=== PATIENT | female | born 1940 | race Caucasian/White ===

== ENCOUNTER 2018-07-28 11:58 | Inpatient (IN) ==
[2018-07-28] MEDS ORDERED: Nicotine 21 MG PATCH.TD24 TD STA (20:01)
[2018-07-28] MEDS: Apixaban 5 MG TABLET PO SCH (20:26)
[2018-07-29 07:15] LABS: Basophils # 0.1 K/mcL (0.0-0.2); Basophils % 0.5 %; Eosinophils # 0.3 K/mcL (0.0-0.6); Eosinophils % 2.8 %; Hematocrit 34.4 % (35.3-44.9); Hemoglobin 10.6 g/dL (11.5-15.4); Immature Granulocytes % 0.3 % (0-4); Lymphocytes # 1.2 K/mcL (0.6-4.6); Lymphocytes % 11.1 %; Mean Corpuscular HGB Conc 30.8 g/dL (31.6-35.5); Mean Corpuscular Hemoglobin 25.9 pg (28.0-33.3); Mean Corpuscular Volume 84.1 fL (83.0-100.0); Mean Platelet Volume 9.2 fL (9.4-12.4); Monocytes % 9.7 %; Neutrophils # 7.8 K/mcL (1.6-8.9); Platelet Count 339 K/mcL (140-400); Red Blood Count 4.09 M/mcL (3.82-4.97); Red Cell Distribution Width 16.8 % (11.5-14.5); Segmented Neutrophils % 75.6 %
[2018-07-29 07:29] LABS: INR 1.3; Prothrombin Time 14.6 Seconds (9.4-12.1)
[2018-07-29 07:32] LABS: Activated Partial Thrombo Time 30.8 Seconds (26.0-36.0)
[2018-07-29 07:40] LABS: BUN/Creatinine Ratio 17 (6-26); Blood Urea Nitrogen 10 mg/dL (8-23); Calcium 8.3 mg/dL (8.6-10.3); Carbon Dioxide 29 mEq/L (23-29); Chloride 104 mEq/L (98-107); Glucose 91 mg/dL (70-105); Magnesium 1.5 mg/dL (1.6-2.6); Osmolality,Calculated 285 (280-300); Potassium 3.3 mEq/L (3.5-5.1); Sodium 138 mEq/L (136-145); eGFR For Non-African Americans > 60 (> 60)
[2018-07-29] MEDS: Apixaban 5 MG TABLET PO SCH ×2 (09:53→20:47)
[2018-07-29] MEDS: Nicotine 21 MG PATCH.TD24 TD SCH (09:54)
[2018-07-29] MEDS: Venlafaxine XR (24 HR) 75 MG CAP.ER.24H PO SCH (09:54)
[2018-07-29] MEDS: Diltiazem CD (24hr) 180 MG CAPSULE PO SCH (09:54)
[2018-07-29] MEDS: Furosemide 20 MG TABLET PO SCH (09:54)
--- NOTE | 2018-07-29 10:31 | Internal Med History&Physical ---
Date of Encounter: 07/29/18 Time of Encounter: 10:14 Assessment and Plan (1) CVA (cerebral vascular accident) Current visit: Yes Status: Acute PT, OT, ST to eval and treat. Will follow progress. Continue pure diet with thin liquids. Assist with ADLs as necessary. No new neurological deficits at this time. Continue eloquence and Lipitor. Has slight expressive aphasia. Qualifiers: CVA mechanism: embolism Precerebral and cerebral artery: middle cerebral artery Laterality of affected vessel: right Qualified Code(s): I63.411 - Cerebral infarction due to embolism of right middle cerebral artery (2) Afib Current visit: Yes Status: Acute Rate and rhythm stable. Continue eloquence and metoprolol. Monitor. Qualifiers: Atrial fibrillation type: chronic Qualified Code(s): I48.2 - Chronic atrial fibrillation (3) Hyperlipemia Current visit: Yes Status: Acute Continue Lipitor. Qualifiers: Hyperlipidemia type: unspecified Qualified Code(s): E78.5 - Hyperlipidemia, unspecified (4) Hypothyroidism Current visit: Yes Status: Acute Continue levothyroxine. Qualifiers: Hypothyroidism type: unspecified Qualified Code(s): E03.9 - Hypothyroidism, unspecified (5) Hypokalemia Current visit: Yes Status: Acute on lasix. k, 3.3. will start supplementation and monitor. Internal Medicine - H&P: HPI Admitted From: Hospital to Hospital Transfer Plans for Post Hospital Care: Home History of present illness: Ms. French is a 77 year old female admitted to rehab unit from [facility] s/p right CVA. went to ED at [facility] ED after having a fall that resulted in wrist pain. xray was normal and she returned home. started having confusion 2 days later and was taken to ER. has hx of afib and was not not anticoagulation therapy. MRI showed acute right MCA infarct . was started on puree diet with thin liquids. started on eliquis and lipitor. [place] with hearing aides, upper and lower dentures and glasses. Lives at home alone, independant prior to admission and drive. Past medical hx includes: a fib, depression, peripheral artery disease, hyperlipidemia, hypothyroidism. Patient is on eliquis. 1 episode of diarrhea this am. denies abd pain, fever, chills, nausea or v omitting. denies SOB or chest pain. Past Med Surg Social Fam HX - Past Medical History Medical history: atrial fibrillation, COPD, hyperlipidemia, hypertension Additional medical history: Hypothyroid Psychiatric history: depression - Past Surgical History Additional surgical history: Thyroid surgery - Social History Smoking Status: Current every day smoker Packs per day: 6 cigarettes Smokeless Tobacco Status: No Alcohol use: occasionally Drug use: none - Family History Mother History Unknown: Yes Living Status: Father History Unknown: Yes Living Status: Internal Medicine - H&P: Meds Cilostazol 50 mg PO BID 07/28/18 [History] Diltiazem HCl [Diltiazem 24Hr Cd] 180 mg PO DAILY 07/28/18 [History] Furosemide [Lasix] 20 mg PO DAILY 07/28/18 [History] Levothyroxine [Synthroid] 75 mcg PO 0630 07/28/18 [History] Lovastatin [Altoprev] 40 mg PO HS 07/28/18 [History] Venlafaxine HCl [Venlafaxine HCl ER] 75 mg PO DAILY 07/28/18 [History] Allergy/AdvReac Type Severity Reaction Status Date / Time No Known Allergies Allergy Verified 07/28/18 16:08 All Systems PM: A 10-system review of systems was performed and is negative for pertinent findin gs except as documented above in the HPI. - Constitutional Constitutional: no chills, no fever(s), no night sweats - EENT Eyes: no change in vision, no discharge, no pain, no photophobia Ears: no ear discharge, no ear pain, no tinnitus Nose, mouth and throat: no dysphagia, no nasal discharge, no neck pain, no sore throat - Cardiovascular Cardiovascular ROS IM: no chest pain, no diaphoresis, no dyspnea, no lightheadedness, no palpitations, no syncope - Respiratory Respiratory: no cough, no dyspnea, no wheezing, no excessive phlegm production - Gastrointestinal Gastrointestinal: no abdominal pain, no diarrhea, no hematemesis, no hematochezia, no melena, no nausea, no vomiting - Genitourinary Genitourinary: no change in urinary stream, no dysuria, no flank pain, no hematuria - Musculoskeletal Musculoskeletal ROS IM: no numbness, no tingling - Integumentary Integumentary IM: no rash, no unusual bruising - Neurological Neurological ROS: no confusion, no convulsions, no focal weakness, no numbness, no tingling, no tremor(s) - Hematologic/Lymphatic Hematologic/Lymphatic: no easy bruising - Constitutional Vitals: Temp Pulse Resp BP Pulse Ox 97.6 F 108 18 153/73 98 07/29/18 06:54 07/29/18 06:54 07/29/18 06:54 07/29/18 06:54 07/29/18 06:54 General appearance: Present: cooperative, A&O X 3, pleasant, no acute distress, answers questions appropriately Exam: expressive aphasia. - Head Head exam: Present: atraumatic, normocephalic - Eye Eye exam: Present: PERRL, conjuntiva pink, sclera anicteric Pupils: Present: PERRL - Neck Neck exam general surgery: Present: supple, trachea midline. Absent: lymphadenopathy - Respiratory Respiratory exam: Present: CTAB. Absent: accessory muscle use, rales, rhonchi, wheezes - Cardiovascular Cardiovascular exam: Present: irregular rhythm, +S1, +S2. Absent: diastolic m urmur, gallop, rubs, systolic murmur - GI/Abdominal GI/Abdominal exam: Present: normal bowel sounds, soft, no peritoneal signs. Absent: distended, tenderness - Extremities Exam Extremities exam: Present: warm, radial pulses palpable and symmetrical. Absent: calf tenderness, cyanotic, pedal edema Additional comments: slight L weakness. strength 4/5 - Neurological Exam Neurological exam: Present: CN II-XII intact, oriented X3, no focal deficits. Absent: pronater drift, facial droop, speech deficit - Skin Skin exam: Present: dry, intact Additional comments: Reddish bruising around left eye Steri-Strips to left forehead. Internal Med - H&P Results - Labs CBC & Chem 7: 07/29/18 07:01 07/29/18 07:01 Labs: Short CBC 07/29/18 Range/Units 07:01 WBC 10.3 (4.3-11.1) K/mcL Hgb 10.6 L (11.5-15.4) g/dL Hct 34.4 L (35.3-44.9) % Plt Count 339 (140-400) K/mcL Neutrophils # 7.8 (1.6-8.9) K/mcL BMP 07/29/18 07:01 Sodium 138 Potassium 3.3 L Chloride 104 Carbon Dioxide 29 BUN 10 Creatinine 0.58 L Glucose 91 Calcium 8.3 L
[2018-07-30 07:35] LABS: BUN/Creatinine Ratio 23 (6-26); Blood Urea Nitrogen 15 mg/dL (8-23); Calcium 8.6 mg/dL (8.6-10.3); Carbon Dioxide 31 mEq/L (23-29); Chloride 105 mEq/L (98-107); Glucose 97 mg/dL (70-105); Osmolality,Calculated 293 (280-300); Potassium 4.2 mEq/L (3.5-5.1); Sodium 141 mEq/L (136-145); eGFR For Non-African Americans > 60 (> 60)
[2018-07-30] MEDS: Diltiazem CD (24hr) 180 MG CAPSULE PO SCH (09:24)
[2018-07-30] MEDS: Furosemide 20 MG TABLET PO SCH (09:24)
[2018-07-30] MEDS: Apixaban 5 MG TABLET PO SCH ×2 (09:25→20:28)
[2018-07-30] MEDS: Venlafaxine XR (24 HR) 75 MG CAP.ER.24H PO SCH (09:25)
[2018-07-30] MEDS: Nicotine 21 MG PATCH.TD24 TD SCH (09:27)
--- NOTE | 2018-07-30 13:04 | Internal Med Progress Note ---
Date of Encounter: 07/30/18 Time of Encounter: 13:05 - Subjective Interval history: Assessment and Plan (1) CVA (cerebral vascular accident) Current visit: Yes Status: Acute PT, OT, ST to eval and treat. had cva when off anticoag. Will follow progress. Continue pure diet with thin liquids. will advance to chop diet as tolerated. Speech eval pend. Continue to Assist with ADLs as necessary. Has l sided weakness. asphasic speech shows some improvement. Small soft fading bruising to mid face and forehead. No new neurological deficits at this time. Continue eliquis and Lipitor. . Qualifiers: CVA mechanism: embolism Precerebral and cerebral artery: middle cerebral artery Laterality of affected vessel: right Qualified Code(s): I63.411 - Cerebral infarction due to embolism of right middle cerebral artery (2) Afib Current visit: Yes Status: Acute Rate and rhythm stable. Continue eliquis and metoprolol. Qualifiers: Atrial fibrillation type: chronic Qualified Code(s): I48.2 - Chronic atrial fibrillation (3) Hyperlipemia Current visit: Yes Status: Acute Continue Lipitor. Qualifiers: Hyperlipidemia type: unspecified Qualified Code(s): E78.5 - Hyperlipidemia, unspecified (4) Hypothyroidism Current visit: Yes Status: Acute Continue levothyroxine. Qualifiers: Hypothyroidism type: unspecified Qualified Code(s): E03.9 - Hypothyroidism, unspecified (5) Hypokalemia and hypomagnasemia Current visit: Yes Status: Acute on lasix. k low will give one time dose oral k and then start daily lower supplementation and monitor. IV mag one gram, then start once day po INTERVAL HISTORY Ms. French is a 77 year old female admitted 07/29 to rehab unit from [facility] s/p right CVA. She lives alone and fell at home, hit her head and wrist. 2 days later very confused and was found to have right sided CVA with left sided weakness and speech change. MRI showed acute right MCA infarct . She as hx of afib and was not not anticoagulation therapy. She had weakness and speech difficulty as well as swallow problems. She was started on puree diet with thin liquids. started on eliquis and lipitor. [place] with hearing aides, upper and lower dentures and glasses. Lives at home alone, independant prior to admission. She has hx anxiety and hypothyroid and htn , and says her mood currently ok on medicine. BP stable HR stable no cp denies vision changes She is a daily half pack smoker. agrees to use patch. advised to stop smoking. She was recently started on eliquis and doing well with it. She is on lasix her K has been low 3.2 renal function good. She wants to advance her diet. Her mag has been low. She is here for rehab. time spent 20 min - EXAM General appearance: Present: WF cooperative, A&O [place] pleasant, no acute distress Exam: mild mod expressive aphasia. - Head Head exam: Present: forehead and midface shows fading bruises and small laceration no drng soft no active bleeding - Eye Eye exam: : PERRL, conjuntiva pink, sclera anicteric Pupils: Present: PERRL - Neck Neck exam general surgery: Present: supple, trachea midline. Absent: lymphadenopathy - Respiratory Respiratory exam: Present: CTAB. Absent: accessory muscle use, rales, rhonchi, wheezes - Cardiovascular Cardiovascular exam: Present: irregular rhythm, +S1, +S2. Absent: diastolic murmur, gallop, rubs, systolic murmur - GI/Abdominal GI/Abdominal exam: Present: normal bowel sounds, soft, no peritoneal signs. Absent: distended, tenderness - Extremities Exam Extremities exam: Present: warm, radial pulses palpable and symmetrical. Absent: calf tenderness, cyanotic, pedal edema Additional comments: slight L weakness. strength 4/5 - Neurological Exam Neurological exam: Present: CN II-XII intact, oriented X3, no focal deficits. Absent: pronater drift, facial droop, speech deficit - Skin Skin exam: Present: dry, intact Additional comments: fading bruising around left eye Steri-Strips to left forehead intact no bleeding - Constitutional Vitals: Temp Pulse Resp BP Pulse Ox 98.4 F 118 16 165/77 95 07/30/18 08:00 07/30/18 08:00 07/30/18 08:00 07/30/18 08:00 07/30/18 08:00 Internal Medicine: Result - Labs CBC & Chem 7: 07/29/18 07:01 07/30/18 06:00 Labs: BMP 07/30/18 06:00 Sodium 141 Potassium 4.2 D Chloride 105 Carbon Dioxide 31 H BUN 15 Creatinine 0.66 Glucose 97 Calcium 8.6 - ABG Interpretation ABG results: PT/INR, D-dimer PT 14.6 Seconds (9.4-12.1) H 07/29/18 07:01 Consult Discharge Plan - Plan Referrals: Farrah Lieberman MD [Primary Care Provider] -
[2018-07-30] MEDS: Multivit/Ca/Min/Fe/FA 1 TAB TABLET PO SCH (15:04)
[2018-07-30] MEDS: Magnesium Oxide 400 MG TABLET PO SCH (15:04)
[2018-07-31 05:52] LABS: BUN/Creatinine Ratio 24 (6-26); Blood Urea Nitrogen 15 mg/dL (8-23); Calcium 8.6 mg/dL (8.6-10.3); Carbon Dioxide 29 mEq/L (23-29); Chloride 102 mEq/L (98-107); Glucose 104 mg/dL (70-105); Osmolality,Calculated 291 (280-300); Potassium 3.9 mEq/L (3.5-5.1); Sodium 140 mEq/L (136-145); eGFR For Non-African Americans > 60 (> 60)
[2018-07-31] MEDS: Furosemide 20 MG TABLET PO SCH (08:56)
[2018-07-31] MEDS: Diltiazem CD (24hr) 180 MG CAPSULE PO SCH (08:57)
[2018-07-31] MEDS: Apixaban 5 MG TABLET PO SCH ×2 (08:57→20:29)
[2018-07-31] MEDS: Multivit/Ca/Min/Fe/FA 1 TAB TABLET PO SCH (08:57)
[2018-07-31] MEDS: Magnesium Oxide 400 MG TABLET PO SCH (08:58)
[2018-07-31] MEDS: Venlafaxine XR (24 HR) 75 MG CAP.ER.24H PO SCH (08:58)
[2018-07-31] MEDS: Nicotine 21 MG PATCH.TD24 TD SCH (09:00)
--- NOTE | 2018-07-31 14:24 | Internal Med Progress Note ---
Date of Encounter: 07/31/18 Time of Encounter: 02:30 - Subjective Interval history: Assessment and Plan (1) CVA (cerebral vascular accident) Current visit: Yes Status: Acute PT, OT, ST to eval and treat. had cva when off anticoag. Will follow progress. Continue pure diet with thin liquids. will advance to chop diet as tolerated. Speech eval pend. Continue to Assist with ADLs as necessary. Has l sided weakness. asphasic speech shows some improvement. Small soft fading bruising to mid face and forehead. No new neurological deficits at this time. Continue eliquis and Lipitor. . Qualifiers: CVA mechanism: embolism Precerebral and cerebral artery: middle cerebral artery Laterality of affected vessel: right Qualified Code(s): I63.411 - Cerebral infarction due to embolism of right middle cerebral artery (2) Afib Current visit: Yes Status: Acute Rate and rhythm stable. Continue eliquis and metoprolol. Qualifiers: Atrial fibrillation type: chronic Qualified Code(s): I48.2 - Chronic atrial fibrillation (3) Hyperlipemia Current visit: Yes Status: Acute Continue Lipitor. Qualifiers: Hyperlipidemia type: unspecified Qualified Code(s): E78.5 - Hyperlipidemia, unspecified (4) Hypothyroidism Current visit: Yes Status: Acute Continue levothyroxine. Qualifiers: Hypothyroidism type: unspecified Qualified Code(s): E03.9 - Hypothyroidism, unspecified (5) Hypokalemia and hypomagnasemia Current visit: Yes Status: Acute on lasix. k low will give one time dose oral k and then start daily lower supplementation and monitor. IV mag one gram, then start once day po INTERVAL HISTORY Ms. Frnech is a 77 year old female admitted 07/29 to rehab unit from [facility] s/p right CVA. She lives alone and fell at home, hit her head and wrist. 2 days later very confused and was found to have right sided CVA with left sided weakness and speech change. MRI showed acute right MCA infarct . She as hx of afib and was not not anticoagulation therapy. She had weakness and speech difficulty as well as swallow problems. She was started on puree diet with thin liquids. started on eliquis and lipitor. advanced to chopped [place] with hearing aides, upper and lower dentures and glasses. Lives at home alone, independant prior to admission. She has hx anxiety and hypothyroid and htn , and says her mood currently ok on medicine. BP stable HR stable denies vision changes She is a daily half pack smoker. agrees to use patch. advised to stop smoking. She was recently started on eliquis and doing well with it. She is on lasix her K has been low and has been replaced renal function good. will continue to monitor K She wants to advance her diet. Her mag has been low. did start PO mag will recheck level She is here for rehab. She was anxious this morning and had transient cp had negative troponin and currently denies cp time spent 20 min - EXAM General appearance: Present: WF cooperative, A&O [place] pleasant, no acute distress Exam: mild mod expressive aphasia. - Head Head exam: Present: forehead and midface shows fading bruises and small laceration no drng soft no active bleeding - Eye Eye exam: : PERRL, conjuntiva pink, sclera anicteric Pupils: Present: PERRL - Neck Neck exam general surgery: Present: supple, trachea midline. Absent: lymphadenopathy - Respiratory Respiratory exam: Present: CTAB. Absent: accessory muscle use, rales, rhonchi, wheezes - Cardiovascular Cardiovascular exam: Present: irregular rhythm, +S1, +S2. Absent: diastolic murmur, gallop, rubs, systolic murmur - GI/Abdominal GI/Abdominal exam: Present: normal bowel sounds, soft, no peritoneal signs. Absent: distended, tenderness - Extremities Exam Extremities exam: Present: warm, radial pulses palpable and symmetrical. Absent: calf tenderness, cyanotic, pedal edema Additional comments: slight L weakness. strength 4/5 - Neurological Exam Neurological exam: Present: CN II-XII intact, oriented X3, no focal deficits. Absent: pronater drift, facial droop, speech deficit - Skin Skin exam: Present: dry, intact Additional comments: fading bruising around left eye Steri-Strips to left forehead intact no bleeding - Constitutional Vitals: Temp Pulse Resp BP Pulse Ox 98.0 F 106 16 141/85 93 07/31/18 08:57 07/31/18 08:57 07/31/18 08:57 07/31/18 08:57 07/31/18 08:57 General appearance: Present: cooperative, A&O X 3, pleasant, no acute distress, answers questions appropriately Internal Medicine: Result - Labs CBC & Chem 7: 07/29/18 07:01 07/31/18 05:35 Labs: BMP 07/31/18 05:35 Sodium 140 Potassium 3.9 Chloride 102 Carbon Dioxide 29 BUN 15 Creatinine 0.63 Glucose 104 Calcium 8.6 Cardiac Enzymes 07/31/18 Range/Units 09:30 Troponin I 0.03 (< 0.04) ng/mL - ABG Interpretation ABG results: PT/INR, D-dimer PT 14.6 Seconds (9.4-12.1) H 07/29/18 07:01 Consult Discharge Plan - Plan Referrals: Farrah Lieberman MD [Primary Care Provider] -
[2018-08-01 07:42] LABS: Basophils % 0.3 %; Eosinophils # 0.1 K/mcL (0.0-0.6); Eosinophils % 0.7 %; Hematocrit 34.4 % (35.3-44.9); Hemoglobin 10.8 g/dL (11.5-15.4); Immature Granulocytes % 0.7 % (0-4); Lymphocytes # 1.3 K/mcL (0.6-4.6); Lymphocytes % 8.8 %; Mean Corpuscular HGB Conc 31.4 g/dL (31.6-35.5); Mean Corpuscular Volume 82.7 fL (83.0-100.0); Mean Platelet Volume 9.4 fL (9.4-12.4); Monocytes # 1.5 K/mcL (0.0-1.3); Monocytes % 10.2 %; Neutrophils # 11.8 K/mcL (1.6-8.9); Nucleated Red Blood Cells 0.2 /100 WBC (0); Platelet Count 370 K/mcL (140-400); Red Blood Count 4.16 M/mcL (3.82-4.97); Segmented Neutrophils % 79.3 %
[2018-08-01 08:26] LABS: BUN/Creatinine Ratio 24 (6-26); Blood Urea Nitrogen 14 mg/dL (8-23); Calcium 8.6 mg/dL (8.6-10.3); Carbon Dioxide 29 mEq/L (23-29); Chloride 99 mEq/L (98-107); Glucose 99 mg/dL (70-105); Osmolality,Calculated 287 (280-300); Potassium 3.4 mEq/L (3.5-5.1); Sodium 138 mEq/L (136-145); eGFR For Non-African Americans > 60 (> 60)
[2018-08-01] MEDS: Venlafaxine XR (24 HR) 75 MG CAP.ER.24H PO SCH (09:21)
[2018-08-01] MEDS: Diltiazem CD (24hr) 180 MG CAPSULE PO SCH (09:21)
[2018-08-01] MEDS: Apixaban 5 MG TABLET PO SCH ×2 (09:21→19:24)
[2018-08-01] MEDS: Furosemide 20 MG TABLET PO SCH (09:21)
[2018-08-01] MEDS: Magnesium Oxide 400 MG TABLET PO SCH (09:21)
[2018-08-01] MEDS: Multivit/Ca/Min/Fe/FA 1 TAB TABLET PO SCH (09:21)
[2018-08-01] MEDS: Nicotine 21 MG PATCH.TD24 TD SCH (09:22)
--- NOTE | 2018-08-01 16:27 | Internal Med Progress Note ---
Date of Encounter: 08/01/18 Time of Encounter: 12:30 - Subjective Interval history: Assessment and Plan (1) CVA (cerebral vascular accident) Current visit: Yes Status: Acute PT, OT, ST to eval and treat. had cva when off anticoagulant at home. No on anticoag. Will follow progress. was on pure diet with thin liquids. did advance to chop diet as tolerated. pt showing some difficulty with adl working with therapy attention span is short Continue to Assist with ADLs as necessary. Has l sided weakness. asphasic speech shows some improvement. Small soft fading bruising to mid face and forehead. No new neurological deficits at this time. Continue eliquis and Lipitor. . Qualifiers: CVA mechanism: embolism Precerebral and cerebral artery: middle cerebral artery Laterality of affected vessel: right Qualified Code(s): I63.411 - Cerebral infarction due to embolism of right middle cerebral artery (2) Afib Current visit: Yes Status: Acute Rate and rhythm stable. Continue eliquis and metoprolol. Qualifiers: Atrial fibrillation type: chronic Qualified Code(s): I48.2 - Chronic atrial fibrillation (3) Hyperlipemia Current visit: Yes Status: Acute Continue Lipitor. Qualifiers: Hyperlipidemia type: unspecified Qualified Code(s): E78.5 - Hyperlipidemia, unspecified (4) Hypothyroidism Current visit: Yes Status: Acute Continue levothyroxine. Qualifiers: Hypothyroidism type: unspecified Qualified Code(s): E03.9 - Hypothyroidism, unspecified (5) Hypokalemia and hypomagnasemia Current visit: Yes Status: Acute on lasix. k low will give one time dose oral k and then start daily lower supplementation and monitor. IV mag one gram, then start once day po will check urinalysis INTERVAL HISTORY Ms. French is a 77 year old female admitted 07/29 to rehab unit from [facility] s/p right CVA. She lives alone and fell at home, hit her head and wrist. 2 days later very confused and was found to have right sided CVA with left sided weakness and speech change. MRI showed acute right MCA infarct . She as hx of afib and was not not anticoagulation therapy. She had weakness and speech difficulty as well as swallow problems. She was started on puree diet with thin liquids. started on eliquis and lipitor. advanced to chopped [place] with hearing aides, upper and lower dentures and glasses. Lives at home alone, independant prior to admission. She has hx anxiety and hypothyroid and htn , and says her mood currently ok on medicine. BP stable HR stable denies vision changes She is a daily half pack smoker. agrees to use patch. advised to stop smoking. She was recently started on eliquis and doing well with it. She is on lasix her K has been low and has been replaced renal function good. will continue to monitor K She wants to advance her diet. Her mag has been low. did start PO mag will recheck level She is here for rehab. working with therapy attention span is short and she is forgetful she has dentures and she is having some trouble with them she is eating fair she reports that she had a loose stool today and feels some urinary frequency currently denies cp time spent 20 min - EXAM General appearance: Present: WF cooperative, A&O [place] pleasant, no acute distress Exam: mild mod expressive aphasia. - Head Head exam: Present: forehead and midface shows fading bruises and small laceration no drng soft no active bleeding - Eye Eye exam: : PERRL, conjuntiva pink, sclera anicteric Pupils: Present: PERRL - Neck Neck exam general surgery: Present: supple, trachea midline. Absent: lymphadenopathy - Respiratory Respiratory exam: Present: CTAB. Absent: accessory muscle use, rales, rhonchi, wheezes - Cardiovascular Cardiovascular exam: Present: irregular rhythm, +S1, +S2. Absent: diastolic murmur, gallop, rubs, systolic murmur - GI/Abdominal GI/Abdominal exam: Present: normal bowel sounds, soft, no peritoneal signs. Absent: distended, tenderness - Extremities Exam Extremities exam: Present: warm, radial pulses palpable and symmetrical. Absent: calf tenderness, cyanotic, pedal edema Additional comments: slight L weakness. strength 4/5 - Neurological Exam Neurological exam: Present: CN II-XII intact, oriented X3, no focal deficits. Absent: pronater drift, facial droop, speech deficit - Skin Skin exam: Present: dry, intact Additional comments: fading bruising around left eye Steri-Strips to left forehead intact no bleeding - Constitutional Vitals: Temp Pulse Resp BP Pulse Ox 98.2 F 116 15 170/90 90 08/01/18 08:02 08/01/18 08:02 08/01/18 08:02 08/01/18 08:02 08/01/18 08:02 Internal Medicine: Result - Labs CBC & Chem 7: 08/01/18 06:44 08/01/18 06:44 Labs: Short CBC 08/01/18 Range/Units 06:44 WBC 14.9 H (4.3-11.1) K/mcL Hgb 10.8 L (11.5-15.4) g/dL Hct 34.4 L (35.3-44.9) % Plt Count 370 (140-400) K/mcL Neutrophils # 11.8 H (1.6-8.9) K/mcL BMP 08/01/18 06:44 Sodium 138 Potassium 3.4 L Chloride 99 Carbon Dioxide 29 BUN 14 Creatinine 0.59 L Glucose 99 Calcium 8.6 - ABG Interpretation ABG results: PT/INR, D-dimer PT 14.6 Seconds (9.4-12.1) H 07/29/18 07:01 Consult Discharge Plan - Plan Referrals: Farrah Lieberman MD [Primary Care Provider] -
[2018-08-01 22:37] LABS: Bilirubin,Urine Negative (Negative); Blood,Urine Trace-intact (Negative); Clarity,Urine Slightly Cloudy (Clear); Glucose,Urine (UA) Normal (Normal); Ketones,Urine Trace mg/dL (Negative); Leukocyte Esterase,Urine Negative (Negative); Nitrite,Urine Negative (Negative); PH,Urine 5.5 pH Units (5.0-8.0); Protein,Urine 30 mg/dL (Neg-Trace); Urobilinogen,Urine Normal (Normal)
[2018-08-01 22:39] LABS: Color,Urine Dark Yellow (Yellow)
[2018-08-01 22:40] LABS: Amorphous Sediment,Urine Few (Few); RBC,Urine 0-3 per hpf (0-3); Squamous Epithelial Cell,Urine Few per lpf (None-Few)
[2018-08-02 06:04] LABS: BUN/Creatinine Ratio 32 (6-26); Blood Urea Nitrogen 20 mg/dL (8-23); Calcium 8.6 mg/dL (8.6-10.3); Carbon Dioxide 29 mEq/L (23-29); Chloride 104 mEq/L (98-107); Glucose 106 mg/dL (70-105); Osmolality,Calculated 289 (280-300); Potassium 4.2 mEq/L (3.5-5.1); Sodium 138 mEq/L (136-145); eGFR For Non-African Americans > 60 (> 60)
[2018-08-02] MEDS: Venlafaxine XR (24 HR) 75 MG CAP.ER.24H PO SCH (09:04)
[2018-08-02] MEDS: Multivit/Ca/Min/Fe/FA 1 TAB TABLET PO SCH (09:04)
[2018-08-02] MEDS: Apixaban 5 MG TABLET PO SCH ×2 (09:05→19:34)
[2018-08-02] MEDS: Nicotine 21 MG PATCH.TD24 TD SCH (09:05)
[2018-08-02] MEDS: Diltiazem CD (24hr) 180 MG CAPSULE PO SCH (09:05)
[2018-08-02] MEDS: Magnesium Oxide 400 MG TABLET PO SCH (09:05)
[2018-08-02] MEDS: Furosemide 20 MG TABLET PO SCH (09:05)
--- NOTE | 2018-08-02 10:34 | Internal Med Progress Note ---
Date of Encounter: 08/02/18 Time of Encounter: 10:32 - Assessment and plan (1) CVA (cerebral vascular accident) Current Visit: Yes Status: Acute Assessment and plan: Continue PT and OT. Will follow progress. Ambulating hundred and 50 feet with standby assist. Does have expressive and receptive aphasia. Follows 2 steps simple commands. Qualifiers: CVA mechanism: embolism Precerebral and cerebral artery: middle cerebral artery Laterality of affected vessel: right Qualified Code(s): I63.411 - Cerebral infarction due to embolism of right middle cerebral artery (2) Afib Current Visit: Yes Status: Acute Assessment and plan: Rate and rhythm stable. Continue current medication. Qualifiers: Atrial fibrillation type: chronic Qualified Code(s): I48.2 - Chronic atrial fibrillation (3) Hyperlipemia Current Visit: Yes Status: Acute Assessment and plan: Continue statin Qualifiers: Hyperlipidemia type: unspecified Qualified Code(s): E78.5 - Hyperlipidemia, unspecified (4) Hypothyroidism Current Visit: Yes Status: Acute Assessment and plan: Continue levothyroxine. Qualifiers: Hypothyroidism type: unspecified Qualified Code(s): E03.9 - Hypothyroidism, unspecified (5) Hypokalemia Current Visit: Yes Status: Acute Assessment and plan: Improved. Potassium 4.2. Monitor labs. Continue potassium PO. - Time Spent With Patient less than 15 minutes - Constitutional Vitals: Temp Pulse Resp BP Pulse Ox 98.5 F 115 16 139/79 93 08/02/18 07:34 08/02/18 07:34 08/02/18 07:34 08/02/18 07:34 08/02/18 07:34 General appearance: Present: cooperative, A&O X 3, pleasant, no acute distress, answers questions appropriately - Head Head exam: Present: atraumatic, normocephalic - Eye Eye exam: Present: PERRL, conjuntiva pink, sclera anicteric Pupils: Present: PERRL - Neck Neck exam general surgery: Present: supple, trachea midline. Absent: lymphadenopathy - Respiratory Respiratory exam: Present: CTAB. Absent: accessory muscle use, rales, rhonchi, wheezes - Cardiovascular Cardiovascular exam: Present: RRR, +S1, +S2. Absent: diastolic murmur, gallop, rubs, systolic murmur - GI/Abdominal GI/Abdominal exam: Present: normal bowel sounds, soft, no peritoneal signs. Absent: distended, tenderness - Extremities Exam Extremities exam: Present: warm, radial pulses palpable and symmetrical. Absent: calf tenderness, cyanotic, pedal edema - Neurological Exam Neurological exam: Present: CN II-XII intact, oriented X3, no focal deficits. Absent: pronater drift, facial droop, speech deficit - Skin Skin exam: Present: dry, intact Additional comments: Steri-Strips strips of left eye with bruising around left eye Internal Medicine: Result - Labs CBC & Chem 7: 08/01/18 06:44 08/02/18 05:35 Labs: BMP 08/02/18 05:35 Sodium 138 Potassium 4.2 Chloride 104 Carbon Dioxide 29 BUN 20 Creatinine 0.62 Glucose 106 H Calcium 8.6 Urine 08/01/18 Range/Units 22:20 Urine Color Dark Yellow (Yellow) Urine Clarity Slightly Cloudy A (Clear) Urine pH 5.5 (5.0-8.0) pH Units Ur Specific [place] 1.020 (1.010-1.025) Urine Protein 30 H (Neg-Trace) mg/dL Urine Glucose (UA) Normal (Normal) mg/dL - ABG Interpretation ABG results: PT/INR, D-dimer PT 14.6 Seconds (9.4-12.1) H 07/29/18 07:01 Consult Discharge Plan - Plan Referrals: Farrah Lieberman MD [Primary Care Provider] -
--- NOTE | 2018-08-02 14:55 | Electrocardiograph Report ---
[address] [address] Test Date: 2018-07-31 Pat Name: Fabby French Department: 2001 Room: 109 Gender: F [employer]: : 1940 Requested By: Radha Titus Order Number: [id number] Reading MD: Mohini Villafana Measurements Intervals [place] Rate: 113 P: CA: 0 QRS: 13 QRSD: 80 T: -40 QT: 318 QTc: 385 Interpretive Statements ATRIAL FIBRILLATION WITH RAPID VENTRICULAR RESPONSE Electronically Signed On 08-02-2018 14:54:44 EDT by Mohini Villafana
[2018-08-03 05:51] LABS: Basophils # 0.1 K/mcL (0.0-0.2); Basophils % 0.6 %; Eosinophils # 0.4 K/mcL (0.0-0.6); Eosinophils % 3.7 %; Hematocrit 32.1 % (35.3-44.9); Hemoglobin 10.1 g/dL (11.5-15.4); Immature Granulocytes % 0.8 % (0-4); Lymphocytes # 1.7 K/mcL (0.6-4.6); Lymphocytes % 15.1 %; Mean Corpuscular HGB Conc 31.5 g/dL (31.6-35.5); Mean Corpuscular Hemoglobin 26.4 pg (28.0-33.3); Mean Platelet Volume 9.3 fL (9.4-12.4); Monocytes % 8.6 %; Neutrophils # 8.1 K/mcL (1.6-8.9); Nucleated Red Blood Cells 0.2 /100 WBC (0); Platelet Count 379 K/mcL (140-400); Red Blood Count 3.82 M/mcL (3.82-4.97); Red Cell Distribution Width 17.3 % (11.5-14.5); Segmented Neutrophils % 71.2 %
[2018-08-03 06:06] LABS: BUN/Creatinine Ratio 27 (6-26); Blood Urea Nitrogen 17 mg/dL (8-23); Calcium 8.7 mg/dL (8.6-10.3); Carbon Dioxide 28 mEq/L (23-29); Chloride 105 mEq/L (98-107); Glucose 98 mg/dL (70-105); Osmolality,Calculated 290 (280-300); Potassium 4.4 mEq/L (3.5-5.1); Sodium 139 mEq/L (136-145); eGFR For Non-African Americans > 60 (> 60)
[2018-08-03] MEDS: Multivit/Ca/Min/Fe/FA 1 TAB TABLET PO SCH (09:12)
[2018-08-03] MEDS: Magnesium Oxide 400 MG TABLET PO SCH (09:12)
[2018-08-03] MEDS: Diltiazem CD (24hr) 180 MG CAPSULE PO SCH (09:13)
[2018-08-03] MEDS: Venlafaxine XR (24 HR) 75 MG CAP.ER.24H PO SCH (09:13)
[2018-08-03] MEDS: Apixaban 5 MG TABLET PO SCH ×2 (09:13→20:20)
[2018-08-03] MEDS: Furosemide 20 MG TABLET PO SCH (09:13)
[2018-08-03] MEDS: Nicotine 21 MG PATCH.TD24 TD SCH (09:14)
--- NOTE | 2018-08-03 13:57 | Internal Med Progress Note ---
Date of Encounter: 08/03/18 Time of Encounter: 13:55 - Assessment and plan (1) CVA (cerebral vascular accident) Current Visit: Yes Status: Acute Assessment and plan: No acute issues. Patient continues to have some issues with expressive aphasia and her dysphagia. Patient will continue work with speech therapy and will continue to reinforce proper swallow techniques. Patient noted to continue to have some issues with word searching during complex sentences, but was appropriate with answering complex questions and following complex directions. No motor deficit noted on exam. We will continue with physical therapy which she is progressing well with Qualifiers: CVA mechanism: embolism Precerebral and cerebral artery: middle cerebral artery Laterality of affected vessel: right Qualified Code(s): I63.411 - Ce rebral infarction due to embolism of right middle cerebral artery (2) HTN (hypertension) Current Visit: Yes Status: Acute Assessment and plan: Vital signs stable. We will continue with current medications. Qualifiers: Hypertension type: essential hypertension Qualified Code(s): I10 - Essential (primary) hypertension (3) Afib Current Visit: Yes Status: Acute Assessment and plan: No acute issues. Patient's heart rate has remained controlled less than 100. Patient denies any chest discomfort or palpitations. We will continue with current medications Qualifiers: Atrial fibrillation type: chronic Qualified Code(s): I48.2 - Chronic atrial fibrillation - Time Spent With Patient less than 15 minutes - Subjective Interval history: Patient appears relaxed and currently denies any discomforts or shortness of breath. Patient states that her physical therapy is progressing well. Patient noted to have some issues with word searching during conversation, but was able to answer complex questions appropriately Patient reports that patient has been having difficulty with swallow, pocketing her food when eating. Patient instructed to remove dentures and rinse out her dentures afterwards - Constitutional Vitals: Temp Pulse Resp BP Pulse Ox 98.1 F 127 16 147/87 95 08/03/18 08:44 08/03/18 08:44 08/03/18 08:44 08/03/18 08:44 08/03/18 08:44 General appearance: Present: cooperative, A&O X 3, pleasant, no acute distress, answers questions appropriately - Head Head exam: Present: atraumatic, normocephalic - Eye Eye exam: Present: PERRL, conjuntiva pink, sclera anicteric Pupils: Present: PERRL - Neck Neck exam general surgery: Present: supple, trachea midline. Absent: lymphadeno sanaz - Respiratory Respiratory exam: Present: decreased breath sounds, CTAB. Absent: accessory muscle use, rales, rhonchi, wheezes - Cardiovascular Cardiovascular exam: Present: RRR, +S1, +S2. Absent: diastolic murmur, gallop, rubs, systolic murmur - GI/Abdominal GI/Abdominal exam: Present: normal bowel sounds, soft, no peritoneal signs. Absent: distended, tenderness - Extremities Exam Extremities exam: Present: warm, radial pulses palpable and symmetrical. Absent: calf tenderness, cyanotic, pedal edema - Neurological Exam Neurological exam: Present: CN II-XII intact, oriented X3, facial droop, speech deficit. Absent: pronater drift Additional comments: Patient noted to continue to have slight left facial droop. She also continues to have a slight expressive aphasia with word searching during complexed sentences. No focal motor deficits noted on exam - Skin Skin exam: Present: dry, intact Internal Medicine: Result - Labs CBC & Chem 7: 08/03/18 05:15 08/03/18 05:15 Labs: Short CBC 08/03/18 Range/Units 05:15 WBC 11.4 H (4.3-11.1) K/mcL Hgb 10.1 L (11.5-15.4) g/dL Hct 32.1 L (35.3-44.9) % Plt Count 379 (140-400) K/mcL Neutrophils # 8.1 (1.6-8.9) K/mcL BMP 08/03/18 05:15 Sodium 139 Potassium 4.4 Chloride 105 Carbon Dioxide 28 BUN 17 Creatinine 0.64 Glucose 98 Calcium 8.7 - ABG Interpretation ABG results: PT/INR, D-dimer PT 14.6 Seconds (9.4-12.1) H 07/29/18 07:01 Consult Discharge Plan - Plan Referrals: Farrah Lieberman MD [Primary Care Provider] -
--- NOTE | 2018-08-03 14:54 | Psychological Evaluation ---
Date of Encounter: 08/03/18 Time of Encounter: 10:30 History of Present Illness History of present illness: Ms. French is a 77 year old female was admitted to rehab unit from [facility] s/p right CVA. She went to ED at [facility] ED after having a fall that resulted in wrist pain. xray was normal and she returned home. She started having confusion 2 days later and was taken to ER. She has hx of afib and was not not anticoagulation therapy. MRI showed acute right MCA infarct Past Medical History - Psychiatric History Psychiatric history: Reports: no psych history Home Medications and Allergies Cilostazol 50 mg PO BID 07/28/18 [History] Diltiazem HCl [Diltiazem 24Hr Cd] 180 mg PO DAILY 07/28/18 [History] Furosemide [Lasix] 20 mg PO DAILY 07/28/18 [History] Levothyroxine [Synthroid] 75 mcg PO 0630 07/28/18 [History] Lovastatin [Altoprev] 40 mg PO HS 07/28/18 [History] Venlafaxine HCl [Venlafaxine HCl ER] 75 mg PO DAILY 07/28/18 [History] Allergy/AdvReac Type Severity Reaction Status Date / Time No Known Allergies Allergy Verified 07/28/18 16:08 Social History - Social History Social History: Pt lives alone and is . Son years ago. She has 3 brothers that are supportive. She is high school graduate and worked 37 years for [employer] retiring in 2000. She was totally independent prior to CVA. - Tobacco Use Smoking Status: Current every day smoker - Alcohol Use Alcohol Use: occasionally - Drug Use Drug Use: none Cognitive/Emotional Assessment - Cognitive Ability Abstract Thinking Ability: No Deficits Noted Attention Span Ability: Capable of Focused Attention, Capable of Sustained Attention Verbal Communication Ability: Conversational Style Problem Solving Ability: Able To Solve Simple Problems Level of Alertness: Alert Memory Description: Recent Intact, Immediate Intact, Mcc Intact Orientation: Person, Place, Time Ability to Follow Directions: Good Speech Pattern: Normal rate Thought Process: Logical Additional Findings: Pt had difficulty hearing and needed instructions repeated due to bilateral aids. She could not spell WORLD backwards. Able to recall 3/3 words after 5 min. Knew current events. Stated changes in reading abilities since CVA and upset because enjoyed reading before. Also concerned with pocketing food and team noted possible left neglect. - Emotional Status Mood Description: Anxious Affect Description: Euthymic/stable Coping Ability: Verbalizes positive coping skills Additional Findings: Sleeping difficult because anxious with changes since CVA and concerned with how she will cope upon release from rehab. Worries about driving and paying bills. Rec tx will assist with relaxation strategies. Assessment & Plan - Prognosis Prognosis: Good - Treatment Plan Treatment Plan/Recommendations: Discussed relaxation strategies and development of compensatory strategies for returning to maintaining home - driving, bill paying. Will follow while inpt Treatment Frequency: weekly Next Session Date: 08/10/18 Procedures - Participants Therapy Participant: Patient - Session Time Session Start Time: 10:30 Session Stop Time: 11:00
[2018-08-03] MEDS: Melatonin 3 MG TABLET PO PRN (20:20)
[2018-08-04 06:05] LABS: BUN/Creatinine Ratio 22 (6-26); Blood Urea Nitrogen 15 mg/dL (8-23); Calcium 8.5 mg/dL (8.6-10.3); Carbon Dioxide 29 mEq/L (23-29); Chloride 105 mEq/L (98-107); Glucose 124 mg/dL (70-105); Osmolality,Calculated 290 (280-300); Potassium 4.3 mEq/L (3.5-5.1); Sodium 139 mEq/L (136-145); eGFR For Non-African Americans > 60 (> 60)
[2018-08-04] MEDS: Furosemide 20 MG TABLET PO SCH (10:21)
[2018-08-04] MEDS: Magnesium Oxide 400 MG TABLET PO SCH (10:21)
[2018-08-04] MEDS: Nicotine 21 MG PATCH.TD24 TD SCH (10:21)
[2018-08-04] MEDS: Venlafaxine XR (24 HR) 75 MG CAP.ER.24H PO SCH (10:21)
[2018-08-04] MEDS: Diltiazem CD (24hr) 180 MG CAPSULE PO SCH (10:22)
[2018-08-04] MEDS: Multivit/Ca/Min/Fe/FA 1 TAB TABLET PO SCH (10:22)
[2018-08-04] MEDS: Apixaban 5 MG TABLET PO SCH ×2 (10:22→20:36)
--- NOTE | 2018-08-04 15:34 | Internal Med Progress Note ---
Date of Encounter: 08/04/18 Time of Encounter: 15:32 - Assessment and plan (1) CVA (cerebral vascular accident) Current Visit: Yes Status: Acute Assessment and plan: Continue PT and OT. Will follow progress. Ambulating hundred and 50 feet with standby assist. Does have expressive and receptive aphasia. Follows 2 steps simple commands. Qualifiers: CVA mechanism: embolism Precerebral and cerebral artery: middle cerebral artery Laterality of affected vessel: right Qualified Code(s): I63.411 - Cerebral infarction due to embolism of right middle cerebral artery (2) Afib Current Visit: Yes Status: Acute Assessment and plan: Rate and rhythm stable. Continue current medication. Qualifiers: Atrial fibrillation type: chronic Qualified Code(s): I48.2 - Chronic atrial fibrillation (3) Hyperlipemia Current Visit: Yes Status: Acute Assessment and plan: Continue statin Qualifiers: Hyperlipidemia type: unspecified Qualified Code(s): E78.5 - Hyperlipidemia, unspecified (4) Hypothyroidism Current Visit: Yes Status: Acute Assessment and plan: Continue levothyroxine. Qualifiers: Hypothyroidism type: unspecified Qualified Code(s): E03.9 - Hypothyroidism, unspecified - Time Spent With Patient less than 15 minutes - Subjective Interval history: Participating well with therapy. Ambulating in hallway with Walker was standby assist. Still has safety concerns. States bowels have been loose again today. Were good for about 2 days before becoming loose again today. Denies abdominal pain. Denies fever, chills, nausea or vomiting. Denies shortness of breath or chest pain. - Constitutional Vitals: Temp Pulse Resp BP Pulse Ox 98.5 F 104 16 144/79 93 08/04/18 06:00 08/04/18 06:00 08/04/18 06:00 08/04/18 06:00 08/04/18 06:00 General appearance: Present: cooperative, A&O X 3, pleasant, no acute distress, answers questions appropriately - Head Head exam: Present: atraumatic, normocephalic - Eye Eye exam: Present: PERRL, conjuntiva pink, sclera anicteric Pupils: Present: PERRL - Neck Neck exam general surgery: Present: supple, trachea midline. Absent: lymphadenopathy - Respiratory Respiratory exam: Present: CTAB. Absent: accessory muscle use, rales, rhonchi, wheezes - Cardiovascular Cardiovascular exam: Present: irregular rhythm, +S1, +S2. Absent: diastolic murmur, gallop, rubs, systolic murmur - GI/Abdominal GI/Abdominal exam: Present: normal bowel sounds, soft, no peritoneal signs. Absent: distended, tenderness - Extremities Exam Extremities exam: Present: warm, radial pulses palpable and symmetrical. Absent: calf tenderness, cyanotic, pedal edema - Neurological Exam Neurological exam: Present: CN II-XII intact, oriented X3, no focal deficits. Absent: pronater drift, facial droop, speech deficit - Skin Skin exam: Present: dry, intact Additional comments: Steri-Strips to left for head, healing bruising around left eye. Scattered ecchymosis to bilateral upper extremities. Internal Medicine: Result - Labs CBC & Chem 7: 08/03/18 05:15 08/04/18 05:35 Labs: BMP 08/04/18 05:35 Sodium 139 Potassium 4.3 Chloride 105 Carbon Dioxide 29 BUN 15 Creatinine 0.68 Glucose 124 H Calcium 8.5 L - ABG Interpretation ABG results: PT/INR, D-dimer PT 14.6 Seconds (9.4-12.1) H 07/29/18 07:01 Consult Discharge Plan - Plan Referrals: Farrah Lieberman MD [Primary Care Provider] -
[2018-08-04] MEDS: Melatonin 3 MG TABLET PO PRN (20:37)
[2018-08-05] MEDS: Multivit/Ca/Min/Fe/FA 1 TAB TABLET PO SCH (08:35)
[2018-08-05] MEDS: Furosemide 20 MG TABLET PO SCH (08:35)
[2018-08-05] MEDS: Diltiazem CD (24hr) 180 MG CAPSULE PO SCH (08:35)
[2018-08-05] MEDS: Apixaban 5 MG TABLET PO SCH ×2 (08:35→21:22)
[2018-08-05] MEDS: Venlafaxine XR (24 HR) 75 MG CAP.ER.24H PO SCH (08:35)
[2018-08-05] MEDS: Nicotine 21 MG PATCH.TD24 TD SCH (08:38)
--- NOTE | 2018-08-05 10:34 | Internal Med Progress Note ---
Date of Encounter: 08/05/18 Time of Encounter: 09:10 - Assessment and plan (1) CVA (cerebral vascular accident) Current Visit: Yes Status: Acute Assessment and plan: Patient will continue therapies, as planned. She is presently doing well and we will continue to follow. Qualifiers: CVA mechanism: embolism Precerebral and cerebral artery: middle cerebral artery Laterality of affected vessel: right Qualified Code(s): I63.411 - Cerebral infarction due to embolism of right middle cerebral artery (2) Afib Current Visit: Yes Status: Acute Assessment and plan: Clinically stable with controlled rate on chronic anticoagulation. Qualifiers: Atrial fibrillation type: chronic Qualified Code(s): I48.2 - Chronic atrial fibrillation (3) Hypothyroidism Current Visit: Yes Status: Acute Assessment and plan: Clinically euthyroid. Qualifiers: Hypothyroidism type: unspecified Qualified Code(s): E03.9 - Hypothyroidism, unspecified (4) HTN (hypertension) Current Visit: Yes Status: Acute Assessment and plan: Blood pressure is controlled. Will follow. Qualifiers: Hypertension type: essential hypertension Qualified Code(s): I10 - Essential (primary) hypertension - Subjective Interval history: Patient has only one complaint: She has "diarrhea." She states that this is one to 3 times per day. However, nursing notes that she has not had any diarrhea. At most, she has had 1 loose stool. She is mostly incontinent of formed, brown stool. Therefore, it seems that her "diarrhea" is actually incontinence. Patient has no complaint of chest discomfort, dyspnea, orthopnea, palpitations, nausea or vomiting, constipation or diarrhea, other changes in bowel habits, difficulty with urination, rash or itching, or other new complaints, except as mentioned above. Review of systems is otherwise negative. I discussed management of her care with nursing staff. - Constitutional Vitals: Temp Pulse Resp BP Pulse Ox 98.2 F 90 16 116/68 93 08/05/18 07:46 08/05/18 07:46 08/05/18 07:46 08/05/18 07:46 08/05/18 07:46 Exam: Examination: (Except as mentioned above): General: In no apparent distress. Alert and oriented 3. Nondiaphoretic. Head: Atraumatic and normocephalic. Respiratory: No use of accessory muscles. Lungs are clear throughout. Normal airflow. Cardiovascular: Irregularly irregular consistent with age but rate is controlled at the upper limits of normal. There is no murmur appreciated. Abdomen: Bowel sounds are normal. No hepatosplenomegaly mass or tenderness appreciated. Obese and therefore difficult to palpate deeply. Patient is examined upright in chair and this also limits exam. Extremities: No cyanosis clubbing or edema. Skin: Warm and non-diaphoretic with no new lesions noted. Internal Medicine: Result - Labs CBC & Chem 7: 08/03/18 05:15 08/04/18 05:35 - ABG Interpretation ABG results: PT/INR, D-dimer PT 14.6 Seconds (9.4-12.1) H 07/29/18 07:01 Consult Discharge Plan - Plan Referrals: Farrah Lieberman MD [Primary Care Provider] -
[2018-08-05] MEDS: Melatonin 3 MG TABLET PO PRN (21:23)
[2018-08-06] MEDS: Diltiazem CD (24hr) 180 MG CAPSULE PO SCH (08:40)
[2018-08-06] MEDS: Venlafaxine XR (24 HR) 75 MG CAP.ER.24H PO SCH (08:40)
[2018-08-06] MEDS: Multivit/Ca/Min/Fe/FA 1 TAB TABLET PO SCH (08:40)
[2018-08-06] MEDS: Furosemide 20 MG TABLET PO SCH (08:40)
[2018-08-06] MEDS: Apixaban 5 MG TABLET PO SCH ×2 (08:41→19:31)
[2018-08-06] MEDS: Nicotine 21 MG PATCH.TD24 TD SCH (08:41)
--- NOTE | 2018-08-06 09:57 | Internal Med Progress Note ---
Date of Encounter: 08/06/18 Time of Encounter: 08:50 - Assessment and plan (1) CVA (cerebral vascular accident) Current Visit: Yes Status: Acute Assessment and plan: No additional signs or symptoms and continues with therapies as planned. Qualifiers: CVA mechanism: embolism Precerebral and cerebral artery: middle cerebral artery Laterality of affected vessel: right Qualified Code(s): I63.411 - Cerebral infarction due to embolism of right middle cerebral artery (2) Afib Current Visit: Yes Status: Acute Assessment and plan: Rate controlled, as noted. Qualifiers: Atrial fibrillation type: chronic Qualified Code(s): I48.2 - Chronic atrial fibrillation (3) Hypothyroidism Current Visit: Yes Status: Acute Assessment and plan: Clinically stable and euthyroid. Qualifiers: Hypothyroidism type: unspecified Qualified Code(s): E03.9 - Hypothyroidism, unspecified (4) HTN (hypertension) Current Visit: Yes Status: Acute Assessment and plan: Controlled. Qualifiers: Hypertension type: essential hypertension Qualified Code(s): I10 - Essential (primary) hypertension (5) Fecal incontinence Current Visit: Yes Status: Acute Assessment and plan: See discussion in subjective. Qualifiers: Fecal incontinence type: unspecified Qualified Code(s): R15.9 - Full incontinence of feces - Subjective Interval history: The patient notes that diarrhea is improved but persistent. We discussed this at length. I told her that based on the nurse's statements, this was not di arrhea but incontinence. I told her this might be related to her stroke. We will thus will improve with time. She agrees to keep us informed. However, she still uses the term "diarrhea" in discussion. Patient has no complaint of chest discomfort, dyspnea, orthopnea, palpitations, nausea or vomiting, constipation or diarrhea, other changes in bowel habits, difficulty with urination, rash or itching, or other new complaints, except as mentioned above. Review of systems is otherwise negative. I discussed management of her care with nursing staff. - Constitutional Vitals: Temp Pulse Resp BP Pulse Ox 98.3 F 94 16 142/77 94 08/06/18 07:58 08/06/18 07:58 08/06/18 07:58 08/06/18 07:58 08/06/18 07:58 Exam: Examination: (Except as mentioned above): General: In no apparent distress. Alert and oriented 3. Nondiaphoretic. Head: Atraumatic and normocephalic. Respiratory: No use of accessory muscles. Lungs are clear throughout. Normal airflow. Cardiovascular: Irregularly irregular consistent with atrial fibrillation but rate is controlled, without murmur appreciated. Abdomen: Bowel sounds are normal. No hepatosplenomegaly mass or tenderness appreciated. Obese and therefore difficult to palpate deeply. Extremities: No cyanosis clubbing or edema. Skin: Warm and non-diaphoretic with no new lesions noted. Internal Medicine: Result - Labs CBC & Chem 7: 08/03/18 05:15 08/04/18 05:35 - ABG Interpretation ABG results: PT/INR, D-dimer PT 14.6 Seconds (9.4-12.1) H 07/29/18 07:01 Consult Discharge Plan - Plan Referrals: Farrah Lieberman MD [Primary Care Provider] -
[2018-08-06] MEDS: Melatonin 3 MG TABLET PO PRN (19:30)
[2018-08-07] MEDS: Nicotine 21 MG PATCH.TD24 TD SCH (08:55)
[2018-08-07] MEDS: Furosemide 20 MG TABLET PO SCH (08:56)
[2018-08-07] MEDS: Apixaban 5 MG TABLET PO SCH ×2 (08:56→19:33)
[2018-08-07] MEDS: Multivit/Ca/Min/Fe/FA 1 TAB TABLET PO SCH (08:56)
[2018-08-07] MEDS: Venlafaxine XR (24 HR) 75 MG CAP.ER.24H PO SCH (08:56)
[2018-08-07] MEDS: Diltiazem CD (24hr) 180 MG CAPSULE PO SCH (08:56)
--- NOTE | 2018-08-07 13:50 | Internal Med Progress Note ---
Date of Encounter: 08/07/18 Time of Encounter: 13:50 - Assessment and plan (1) CVA (cerebral vascular accident) Current Visit: Yes Status: Acute Assessment and plan: Improving and we will assess with therapies, tomorrow. Qualifiers: CVA mechanism: embolism Precerebral and cerebral artery: middle cerebral artery Laterality of affected vessel: right Qualified Code(s): I63.411 - Cerebral infarction due to embolism of right middle cerebral artery (2) Afib Current Visit: Yes Status: Acute Assessment and plan: Clinically controlled with adequate rate control and on chronic anticoagulation. Qualifiers: Atrial fibrillation type: chronic Qualified Code(s): I48.2 - Chronic atrial fibrillation (3) Hypothyroidism Current Visit: Yes Status: Acute Assessment and plan: Clinically euthyroid. Qualifiers: Hypothyroidism type: unspecified Qualified Code(s): E03.9 - Hypothyroidism, unspecified (4) HTN (hypertension) Current Visit: Yes Status: Acute Assessment and plan: Adequate control. Qualifiers: Hypertension type: essential hypertension Qualified Code(s): I10 - Essential (primary) hypertension (5) Fecal incontinence Current Visit: Yes Status: Acute Assessment and plan: Per patient, none today. Will follow. Qualifiers: Fecal incontinence type: unspecified Qualified Code(s): R15.9 - Full incontinence of feces - Subjective Interval history: The patient is without complaint. She is resting quietly upon my arrival. She denies any incontinence, today. She denies urinary difficulties, etc. Patient has no complaint of chest discomfort, dyspnea, orthopnea, palpitations, nausea or vomiting, constipation or diarrhea, other changes in bowel habits, difficulty with urination, rash or itching, or other new complaints, except as mentioned above. Review of systems is otherwise negative. I discussed management of her care with nursing staff. - Constitutional Vitals: Temp Pulse Resp BP Pulse Ox 98.4 F 104 14 150/74 92 08/07/18 07:15 08/07/18 07:15 08/07/18 07:15 08/07/18 07:15 08/07/18 07:15 Exam: Examination: (Except as mentioned above): General: In no apparent distress. Alert and oriented 3. Nondiaphoretic. Head: Atraumatic and normocephalic. Respiratory: No use of accessory muscles. Lungs are clear throughout. Normal airflow. Cardiovascular: Irregularly irregular with rate controlled, without murmur appreciated. Abdomen: Bowel sounds are normal. No hepatosplenomegaly mass or tenderness appreciated. Obese and therefore difficult to palpate deeply. Patient is examined upright at bedside and this also limits exam. Extremities: No cyanosis clubbing or edema. Skin: Warm and non-diaphoretic with no new lesions noted. Internal Medicine: Result - Labs CBC & Chem 7: 08/03/18 05:15 08/04/18 05:35 - ABG Interpretation ABG results: PT/INR, D-dimer PT 14.6 Seconds (9.4-12.1) H 07/29/18 07:01 Consult Discharge Plan - Plan Referrals: Farrah Lieberman MD [Primary Care Provider] -
[2018-08-07] MEDS: Melatonin 3 MG TABLET PO PRN ×2 (19:33→20:36)
[2018-08-08 06:33] LABS: Basophils # 0.1 K/mcL (0.0-0.2); Basophils % 0.7 %; Eosinophils # 0.2 K/mcL (0.0-0.6); Eosinophils % 1.4 %; Hematocrit 34.4 % (35.3-44.9); Hemoglobin 10.7 g/dL (11.5-15.4); Immature Granulocytes % 0.7 % (0-4); Lymphocytes % 9.9 %; Mean Corpuscular HGB Conc 31.1 g/dL (31.6-35.5); Mean Corpuscular Hemoglobin 25.9 pg (28.0-33.3); Mean Corpuscular Volume 83.3 fL (83.0-100.0); Mean Platelet Volume 9.1 fL (9.4-12.4); Monocytes % 9.4 %; Neutrophils # 8.2 K/mcL (1.6-8.9); Platelet Count 436 K/mcL (140-400); Red Blood Count 4.13 M/mcL (3.82-4.97); Red Cell Distribution Width 16.8 % (11.5-14.5); Segmented Neutrophils % 77.9 %
[2018-08-08 06:42] LABS: Alanine Aminotransferase 26 Units/L (7-52); Albumin 3.2 g/dL (3.5-5.7); Albumin/Globulin Ratio 1.1 (1.1-2.2); Alkaline Phosphatase 186 Units/L (34-104); Aspartate Amino Transferase 31 Units/L (13-39); BUN/Creatinine Ratio 22 (6-26); Bilirubin,Total 0.5 mg/dL (0.3-1.0); Blood Urea Nitrogen 15 mg/dL (8-23); Calcium 8.8 mg/dL (8.6-10.3); Carbon Dioxide 28 mEq/L (23-29); Chloride 102 mEq/L (98-107); Globulin 2.8 g/dL (2.4-3.5); Glucose 125 mg/dL (70-105); Osmolality,Calculated 288 (280-300); Potassium 3.9 mEq/L (3.5-5.1); Sodium 138 mEq/L (136-145); eGFR For Non-African Americans > 60 (> 60)
[2018-08-08] MEDS: Venlafaxine XR (24 HR) 75 MG CAP.ER.24H PO SCH (09:21)
[2018-08-08] MEDS: Apixaban 5 MG TABLET PO SCH ×2 (09:21→20:58)
[2018-08-08] MEDS: Multivit/Ca/Min/Fe/FA 1 TAB TABLET PO SCH (09:21)
[2018-08-08] MEDS: Furosemide 20 MG TABLET PO SCH (09:22)
[2018-08-08] MEDS: Diltiazem CD (24hr) 180 MG CAPSULE PO SCH (09:22)
[2018-08-08] MEDS: Nicotine 21 MG PATCH.TD24 TD SCH (09:22)
--- NOTE | 2018-08-08 10:15 | Internal Med Progress Note ---
Date of Encounter: 08/08/18 Time of Encounter: 10:13 - Assessment and plan (1) CVA (cerebral vascular accident) Current Visit: Yes Status: Acute Assessment and plan: Continue PT and OT. Will follow progress. Ambulating hundred and 50 feet with standby assist. Does have expressive and receptive aphasia. Follows 2 steps simple commands. Qualifiers: CVA mechanism: embolism Precerebral and cerebral artery: middle cerebral artery Laterality of affected vessel: right Qualified Code(s): I63.411 - Cerebral infarction due to embolism of right middle cerebral artery (2) Afib Current Visit: Yes Status: Acute Assessment and plan: Rate and rhythm stable. Continue current medication. Qualifiers: Atrial fibrillation type: chronic Qualified Code(s): I48.2 - Chronic atrial fibrillation (3) Hyperlipemia Current Visit: Yes Status: Acute Assessment and plan: Continue statin Qualifiers: Hyperlipidemia type: unspecified Qualified Code(s): E78.5 - Hyperlipidemia, unspecified (4) Hypothyroidism Current Visit: Yes Status: Acute Assessment and plan: Continue levothyroxine. Qualifiers: Hypothyroidism type: unspecified Qualified Code(s): E03.9 - Hypothyroidism, unspecified - Time Spent With Patient less than 15 minutes - Subjective Interval history: Participating well with therapy. Ambulating in hallway with Walker was standby assist. Still has safety concerns. States bowels moved this am. Denies fever, chills, nausea or vomiting. Denies shortness of breath or chest pain. - Constitutional Vitals: Temp Pulse Resp BP Pulse Ox 99.2 F 90 16 153/80 91 08/08/18 08:07 08/08/18 08:07 08/08/18 08:07 08/08/18 08:07 08/08/18 08:07 General appearance: Present: cooperative, A&O X 3, pleasant, no acute distress, answers questions appropriately - Head Head exam: Present: atraumatic, normocephalic - Eye Eye exam: Present: PERRL, conjuntiva pink, sclera anicteric Pupils: Present: PERRL - Neck Neck exam general surgery: Present: supple, trachea midline. Absent: lymphadenopathy - Respiratory Respiratory exam: Present: CTAB. Absent: accessory muscle use, rales, rhonchi, wheezes - Cardiovascular Cardiovascular exam: Present: irregular rhythm, +S1, +S2. Absent: diastolic mu rmur, gallop, rubs, systolic murmur - GI/Abdominal GI/Abdominal exam: Present: normal bowel sounds, soft, no peritoneal signs. Absent: distended, tenderness - Extremities Exam Extremities exam: Present: warm, radial pulses palpable and symmetrical. Absent: calf tenderness, cyanotic, pedal edema - Neurological Exam Neurological exam: Present: CN II-XII intact, oriented X3, no focal deficits. Absent: pronater drift, facial droop, speech deficit - Skin Skin exam: Present: dry, intact Internal Medicine: Result - Labs CBC & Chem 7: 08/08/18 06:15 08/08/18 06:15 Labs: Short CBC 08/08/18 Range/Units 06:15 WBC 10.5 (4.3-11.1) K/mcL Hgb 10.7 L (11.5-15.4) g/dL Hct 34.4 L (35.3-44.9) % Plt Count 436 H (140-400) K/mcL Neutrophils # 8.2 (1.6-8.9) K/mcL BMP 08/08/18 06:15 Sodium 138 Potassium 3.9 Chloride 102 Carbon Dioxide 28 BUN 15 Creatinine 0.69 Glucose 125 H Calcium 8.8 Liver Function 08/08/18 Range/Units 06:15 Total Bilirubin 0.5 (0.3-1.0) mg/dL AST 31 (13-39) Units/L ALT 26 (7-52) Units/L Alkaline Phosphatase 186 H (34-104) Units/L Albumin 3.2 L (3.5-5.7) g/dL - ABG Interpretation ABG results: PT/INR, D-dimer PT 14.6 Seconds (9.4-12.1) H 07/29/18 07:01 Consult Discharge Plan - Plan Referrals: Farrah Lieberman MD [Primary Care Provider] -
[2018-08-08] MEDS: Melatonin 3 MG TABLET PO PRN (20:59)
[2018-08-09] MEDS: Furosemide 20 MG TABLET PO SCH (08:24)
[2018-08-09] MEDS: Apixaban 5 MG TABLET PO SCH ×2 (08:24→20:51)
[2018-08-09] MEDS: Diltiazem CD (24hr) 180 MG CAPSULE PO SCH (08:24)
[2018-08-09] MEDS: Venlafaxine XR (24 HR) 75 MG CAP.ER.24H PO SCH (08:24)
[2018-08-09] MEDS: Nicotine 21 MG PATCH.TD24 TD SCH (08:25)
[2018-08-09] MEDS: Multivit/Ca/Min/Fe/FA 1 TAB TABLET PO SCH (08:25)
--- NOTE | 2018-08-09 09:56 | Internal Med Progress Note ---
Date of Encounter: 08/09/18 Time of Encounter: 09:54 - Assessment and plan (1) CVA (cerebral vascular accident) Current Visit: Yes Status: Acute Assessment and plan: Continue PT and OT. Will follow progress. Ambulating hundred and 50 feet with standby assist. Does have expressive and receptive aphasia. Follows 2 steps simple commands. Qualifiers: CVA mechanism: embolism Precerebral and cerebral artery: middle cerebral artery Laterality of affected vessel: right Qualified Code(s): I63.411 - Cerebral infarction due to embolism of right middle cerebral artery (2) Afib Current Visit: Yes Status: Acute Assessment and plan: Rate and rhythm stable. Continue current medication. Qualifiers: Atrial fibrillation type: chronic Qualified Code(s): I48.2 - Chronic atrial fibrillation (3) Hyperlipemia Current Visit: Yes Status: Acute Assessment and plan: Continue statin Qualifiers: Hyperlipidemia type: unspecified Qualified Code(s): E78.5 - Hyperlipidemia, unspecified (4) Hypothyroidism Current Visit: Yes Status: Acute Assessment and plan: Continue levothyroxine. Qualifiers: Hypothyroidism type: unspecified Qualified Code(s): E03.9 - Hypothyroidism, unspecified - Time Spent With Patient less than 15 minutes - Subjective Interval history: Participating well with therapy. Ambulating in hallway with Walker was standby assist. Still has safety concerns. Unable to completely problem-solving tasks, , such as balancing checkbook and writing checks. States bowels moved this am. Denies fever, chills, nausea or vomiting. Denies shortness of breath or chest pain. Plan is to discharge home with brother. Patient did have recent blood in stool and will follow up with Dr. Andre on . - Constitutional Vitals: Temp Pulse Resp BP Pulse Ox 98.4 F 96 16 112/62 93 08/09/18 07:28 08/09/18 07:28 08/09/18 07:28 08/09/18 07:28 08/09/18 07:28 General appearance: Present: cooperative, A&O X 3, pleasant, no acute distress, answers questions appropriately - Head Head exam: Present: atraumatic, normocephalic - Eye Eye exam: Present: PERRL, conjuntiva pink, sclera anicteric Pupils: Present: PERRL - Neck Neck exam general surgery: Present: supple, trachea midline. Absent: lymphadenopathy - Respiratory Respiratory exam: Present: CTAB. Absent: accessory muscle use, rales, rhonchi, wheezes - Cardiovascular Cardiovascular exam: Present: irregular rhythm, +S1, +S2. Absent: diastolic murmur, gallop, rubs, systolic murmur - GI/Abdominal GI/Abdominal exam: Present: normal bowel sounds, soft, no peritoneal signs. Absent: distended, tenderness - Extremities Exam Extremities exam: Present: warm, radial pulses palpable and symmetrical. Absent: calf tenderness, cyanotic, pedal edema - Neurological Exam Neurological exam: Present: CN II-XII intact, oriented X3, no focal deficits. Absent: pronater drift, facial droop, speech deficit - Skin Skin exam: Present: dry, intact Internal Medicine: Result - Labs CBC & Chem 7: 08/08/18 06:15 08/08/18 06:15 - ABG Interpretation ABG results: PT/INR, D-dimer PT 14.6 Seconds (9.4-12.1) H 07/29/18 07:01 Consult Discharge Plan - Plan Referrals: Farrah Lieberman MD [Primary Care Provider] -
[2018-08-09] MEDS: Melatonin 3 MG TABLET PO PRN (22:17)
--- NOTE | 2018-08-10 09:27 | Internal Med Progress Note ---
Date of Encounter: 08/10/18 Time of Encounter: 09:25 - Assessment and plan (1) CVA (cerebral vascular accident) Current Visit: Yes Status: Acute Assessment and plan: No acute issues. Patient continues to have some issues with expressive aphasia and her dysphagia. Patient will continue work with speech therapy and will continue to reinforce proper swallow techniques. Patient noted to continue to have some issues with word searching during complex sentences, but was appropriate with answering most questions. Patient noted to have some hesitation following complex directions and had improved response during visual cueing, supporting receptive aphasia. No issues from therapy and reports she is progressing well. Qualifiers: CVA mechanism: embolism Precerebral and cerebral artery: middle cerebral artery Laterality of affected vessel: right Qualified Code(s): I63.411 - Cerebral infarction due to embolism of right middle cerebral artery (2) HTN (hypertension) Current Visit: Yes Status: Acute Assessment and plan: Vital signs stable. We will continue with current medications. Qualifiers: Hypertension type: essential hypertension Qualified Code(s): I10 - Essential (primary) hypertension (3) Afib Current Visit: Yes Status: Acute Assessment and plan: No acute issues. Patient's heart rate has remained controlled less than 100. Patient denies any chest discomfort or palpitations. We will continue with current medications Qualifiers: Atrial fibrillation type: chronic Qualified Code(s): I48.2 - Chronic atrial fibrillation - Time Spent With Patient less than 15 minutes - Subjective Interval history: Patient appears relaxed and currently denies any discomforts or shortness of breath. Patient states that her physical therapy is progressing well. Patient noted to have some issues with word searching during conversation, but was able to answer complex questions appropriately. Patient also noted to have difficulty with following complex directions. No issues reported from Nx and therapy - Constitutional Vitals: Temp Pulse Resp BP Pulse Ox 97.8 F 101 14 115/72 95 08/09/18 19:11 08/09/18 19:11 08/09/18 19:11 08/09/18 19:11 08/09/18 19:11 General appearance: Present: cooperative, A&O X 3, pleasant, no acute distress, answers questions appropriately - Head Head exam: Present: atraumatic, normocephalic - Eye Eye exam: Present: PERRL, conjuntiva pink, sclera anicteric Pupils: Present: PERRL - Neck Neck exam general surgery: Present: supple, trachea midline. Absent: lymphadenopathy - Respiratory Respiratory exam: Present: decreased breath sounds, CTAB. Absent: accessory muscle use, rales, rhonchi, wheezes - Cardiovascular Cardiovascular exam: Present: irregular rhythm, RRR, +S1, +S2. Absent: nicholas tolic murmur, gallop, rubs, systolic murmur - GI/Abdominal GI/Abdominal exam: Present: normal bowel sounds, soft, no peritoneal signs. Absent: distended, tenderness - Extremities Exam Extremities exam: Present: warm, radial pulses palpable and symmetrical. Absent: calf tenderness, cyanotic, pedal edema - Neurological Exam Neurological exam: Present: CN II-XII intact, oriented X3. Absent: pronater drift, facial droop, speech deficit Additional comments: Patient continues with slight left hemiparesis with left extremities +4/5 and right extremities of 5/5. No acute focal deficits noted on exam. Patient continues to have some difficulty with the word search when answering complex questions and also noted to have improved response to directions during the visual cueing - Skin Skin exam: Present: dry, intact Internal Medicine: Result - Labs CBC & Chem 7: 08/08/18 06:15 08/08/18 06:15 - ABG Interpretation ABG results: PT/INR, D-dimer PT 14.6 Seconds (9.4-12.1) H 07/29/18 07:01 Consult Discharge Plan - Plan Referrals: Farrah Lieberman MD [Primary Care Provider] -
--- NOTE | 2018-08-10 10:05 | Rehab Psychology Progress Note ---
Date of Encounter: 08/10/18 Time of Encounter: 09:30 Subjective - Patient Report Patient Report: Smiling and in an upbeat friendly mood. Stated sleep still poor although not as worried. OX3 ( not date -7). Objective - WHODAS Functional Impairment Concentration, Problem-solving, Communication: Mild Social Functioning: Mild Community Involvement/Hobbies: Mild - Comments Functional Status Comments: She stated she is going home with brother and pleased with this. Discussed driving and hopes she can return to it someday, realizes not ready yet. Does not want to go to a "rest home" thus will work hard to regain independence. - Mental Status Mental Status Changes: COntinues to exhibit expressive aphasia. Assessment and Plan - Diagnosis (1) Adjustment disorder with anxiety - Response to Treatment Response to Treatment: Improved - Prognosis Prognosis: Good - Treatment Plan Treatment Plan Recommendations: Change Treatment Plan/Goals Changes in Treatment Plan Goals: Doing well and feeling more aware of surroundings and needs. Has good support system. Procedures - Intervention Interventions: Cognitive/Behavioral Therapy - Modality Modality: Psychotherapy 30 minutes - Participants Therapy Participant: Patient - Session Time Session Start Time: : Session Stop Time: 10:00
[2018-08-10] MEDS: Apixaban 5 MG TABLET PO SCH ×2 (11:33→20:24)
[2018-08-10] MEDS: Nicotine 21 MG PATCH.TD24 TD SCH (11:33)
[2018-08-10] MEDS: Diltiazem CD (24hr) 180 MG CAPSULE PO SCH (11:33)
[2018-08-10] MEDS: Multivit/Ca/Min/Fe/FA 1 TAB TABLET PO SCH (11:33)
[2018-08-10] MEDS: Venlafaxine XR (24 HR) 75 MG CAP.ER.24H PO SCH (11:33)
[2018-08-10] MEDS: Furosemide 20 MG TABLET PO SCH (11:34)
[2018-08-10] MEDS: Melatonin 3 MG TABLET PO PRN (20:24)
[2018-08-11] MEDS: Nicotine 21 MG PATCH.TD24 TD SCH (09:44)
[2018-08-11] MEDS: Diltiazem CD (24hr) 180 MG CAPSULE PO SCH (09:45)
[2018-08-11] MEDS: Venlafaxine XR (24 HR) 75 MG CAP.ER.24H PO SCH (09:45)
[2018-08-11] MEDS: Furosemide 20 MG TABLET PO SCH (09:45)
[2018-08-11] MEDS: Multivit/Ca/Min/Fe/FA 1 TAB TABLET PO SCH (09:46)
[2018-08-11] MEDS: Apixaban 5 MG TABLET PO SCH ×2 (09:46→20:52)
--- NOTE | 2018-08-11 10:19 | Internal Med Progress Note ---
Date of Encounter: 08/11/18 Time of Encounter: 10:17 - Assessment and plan (1) CVA (cerebral vascular accident) Current Visit: Yes Status: Acute Assessment and plan: No acute issues. Patient continues to have some issues with expressive aphasia and her dysphagia. Patient will continue work with speech therapy and will continue to reinforce proper swallow techniques. Patient noted to continue to have some issues with word searching during complex sentences, but was appropriate with answering most questions. Patient noted to have some hesitation following complex directions and had improved response during visual cueing, supporting receptive aphasia. No issues from therapy and reports she is progressing well. Patient being prepared for home safety visit later this week Qualifiers: CVA mechanism: embolism Precerebral and cerebral artery: middle cerebral artery Laterality of affected vessel: right Qualified Code(s): I63.411 - Cerebral infarction due to embolism of right middle cerebral artery (2) HTN (hypertension) Current Visit: Yes Status: Acute Assessment and plan: Vital signs stable. We will continue with current medications. Qualifiers: Hypertension type: essential hypertension Qualified Code(s): I10 - Essential (primary) hypertension (3) Afib Current Visit: Yes Status: Acute Assessment and plan: No acute issues. Patient's heart rate has remained controlled less than 100. Patient denies any chest discomfort or palpitations. We will continue with current medications Qualifiers: Atrial fibrillation type: chronic Qualified Code(s): I48.2 - Chronic atrial fibrillation - Time Spent With Patient less than 15 minutes - Subjective Interval history: Patient appears relaxed and currently denies any discomforts or shortness of breath. Patient states that her physical therapy is progressing well. Patient noted to have some issues with word searching during conversation, but was able to answer complex questions appropriately. Patient also noted to have difficulty with following complex directions. No issues reported from Nx and therapy Patient being prepared for home safety visit later this week. - Constitutional Vitals: Temp Pulse Resp BP Pulse Ox 97.6 F 88 16 121/74 94 08/11/18 07:52 08/11/18 07:52 08/11/18 07:52 08/11/18 07:52 08/11/18 07:52 General appearance: Present: cooperative, A&O X 3, pleasant, no acute distress, answers questions appropriately - Head Head exam: Present: atraumatic, normocephalic - Eye Eye exam: Present: PERRL, conjuntiva pink, sclera anicteric Pupils: Present: PERRL - Neck Neck exam general surgery: Present: supple, trachea midline. Absent: lymphadenopathy - Respiratory Respiratory exam: Present: decreased breath sounds, CTAB. Absent: accessory muscle use, rales, rhonchi, wheezes - Cardiovascular Cardiovascular exam: Present: RRR, +S1, +S2. Absent: diastolic murmur, gallop, rubs, systolic murmur - GI/Abdominal GI/Abdominal exam: Present: normal bowel sounds, soft, no peritoneal signs. Absent: distended, tenderness - Extremities Exam Extremities exam: Present: warm, radial pulses palpable and symmetrical. Absent: calf tenderness, cyanotic, pedal edema - Neurological Exam Neurological exam: Present: CN II-XII intact, oriented X3. Absent: pronater drift, facial droop, speech deficit Additional comments: Patient continues to have some difficulty with word searching during conversation and also noted to have have improved response when following visual cueing. Continued very slight left hemiparesis with left extremities have 4+/5 and right extremities have 5/5. - Skin Skin exam: Present: dry, intact Internal Medicine: Result - Labs CBC & Chem 7: 08/08/18 06:15 08/08/18 06:15 - ABG Interpretation ABG results: PT/INR, D-dimer PT 14.6 Seconds (9.4-12.1) H 07/29/18 07:01 Consult Discharge Plan - Plan Referrals: Farrah Lieberman MD [Primary Care Provider] -
[2018-08-11] MEDS: Melatonin 3 MG TABLET PO PRN (20:53)
[2018-08-12] MEDS: Venlafaxine XR (24 HR) 75 MG CAP.ER.24H PO SCH (08:15)
[2018-08-12] MEDS: Diltiazem CD (24hr) 180 MG CAPSULE PO SCH (08:15)
[2018-08-12] MEDS: Apixaban 5 MG TABLET PO SCH ×2 (08:15→20:02)
[2018-08-12] MEDS: Furosemide 20 MG TABLET PO SCH (08:15)
[2018-08-12] MEDS: Multivit/Ca/Min/Fe/FA 1 TAB TABLET PO SCH (08:15)
[2018-08-12] MEDS: Nicotine 21 MG PATCH.TD24 TD SCH (08:20)
--- NOTE | 2018-08-12 11:16 | Internal Med Progress Note ---
Date of Encounter: 08/12/18 Time of Encounter: 11:13 - Assessment and plan (1) CVA (cerebral vascular accident) Current Visit: Yes Status: Acute Assessment and plan: Continue PT and OT. Will follow progress. Ambulating hundred and 50 feet with standby assist. Does have expressive and receptive aphasia. Follows 2 steps simple commands. Qualifiers: CVA mechanism: embolism Precerebral and cerebral artery: middle cerebral artery Laterality of affected vessel: right Qualified Code(s): I63.411 - Cerebral infarction due to embolism of right middle cerebral artery (2) Afib Current Visit: Yes Status: Acute Assessment and plan: Rate and rhythm stable. Continue current medication. Qualifiers: Atrial fibrillation type: chronic Qualified Code(s): I48.2 - Chronic atrial fibrillation (3) Hyperlipemia Current Visit: Yes Status: Acute Assessment and plan: Continue statin Qualifiers: Hyperlipidemia type: unspecified Qualified Code(s): E78.5 - Hyperlipidemia, unspecified (4) Hypothyroidism Current Visit: Yes Status: Acute Assessment and plan: Continue levothyroxine. Qualifiers: Hypothyroidism type: unspecified Qualified Code(s): E03.9 - Hypothyroidism, unspecified - Time Spent With Patient less than 15 minutes - Subjective Interval history: Participating well with therapy. Ambulating in hallway with Walker was standby assist. participating in light meal prep with OT in kitchen. States bowels moved this am. Denies fever, chills, nausea or vomiting. Denies shortness of breath or chest pain. Plan is to discharge home with brother. Patient did have recent blood in stool and will follow up with Dr. Andre on . - Constitutional Vitals: Temp Pulse Resp BP Pulse Ox 97.5 F L 103 17 120/71 94 08/12/18 08:04 08/12/18 08:04 08/12/18 08:04 08/12/18 08:04 08/12/18 08:04 General appearance: Present: cooperative, A&O X 3, pleasant, no acute distress, answers questions appropriately - Head Head exam: Present: atraumatic, normocephalic - Eye Eye exam: Present: PERRL, conjuntiva pink, sclera anicteric Pupils: Present: PERRL - Neck Neck exam general surgery: Present: supple, trachea midline. Absent: lymphadenopathy - Respiratory Respiratory exam: Present: CTAB. Absent: accessory muscle use, rales, rhonchi, wheezes - Cardiovascular Cardiovascular exam: Present: RRR, +S1, +S2. Absent: diastolic murmur, gallop, rubs, systolic murmur - GI/Abdominal GI/Abdominal exam: Present: normal bowel sounds, soft, no peritoneal signs. Absent: distended, tenderness - Extremities Exam Extremities exam: Present: warm, radial pulses palpable and symmetrical. Absent: calf tenderness, cyanotic, pedal edema - Neurological Exam Neurological exam: Present: CN II-XII intact, oriented X3, no focal deficits. Absent: pronater drift, facial droop, speech deficit - Skin Skin exam: Present: dry, intact Internal Medicine: Result - Labs CBC & Chem 7: 08/08/18 06:15 08/08/18 06:15 - ABG Interpretation ABG results: PT/INR, D-dimer PT 14.6 Seconds (9.4-12.1) H 07/29/18 07:01 Consult Discharge Plan - Plan Referrals: Farrah Lieberman MD [Primary Care Provider] -
[2018-08-12] MEDS: Melatonin 3 MG TABLET PO PRN (20:04)
[2018-08-13] MEDS: Venlafaxine XR (24 HR) 75 MG CAP.ER.24H PO SCH (07:51)
[2018-08-13] MEDS: Diltiazem CD (24hr) 180 MG CAPSULE PO SCH (07:51)
[2018-08-13] MEDS: Nicotine 21 MG PATCH.TD24 TD SCH (07:51)
[2018-08-13] MEDS: Furosemide 20 MG TABLET PO SCH (07:52)
[2018-08-13] MEDS: Apixaban 5 MG TABLET PO SCH ×2 (07:52→20:41)
[2018-08-13] MEDS: Multivit/Ca/Min/Fe/FA 1 TAB TABLET PO SCH (07:52)
--- NOTE | 2018-08-13 14:17 | Internal Med Progress Note ---
Date of Encounter: 08/13/18 Time of Encounter: 01:45 - Subjective Interval history: Assessment and Plan (1) CVA (cerebral vascular accident) Current visit: Yes Status: Acute PT, OT, ST to eval and treat. had cva when off anticoagulant at home. No on anticoag. Will follow progress. was on pure diet with thin liquids. did advance to chop diet as tolerated. pt showing some difficulty with adl working with therapy attention span is short Continue to Assist with ADLs as necessary. Has l sided weakness. asphasic speech shows some improvement. Small soft fading bruising to mid face and forehead. No new neurological deficits at this time. Continue eliquis and Lipitor. . Qualifiers: CVA mechanism: embolism Precerebral and cerebral artery: middle cerebral artery Laterality of affected vessel: right Qualified Code(s): I63.411 - Cerebral infarction due to embolism of right middle cerebral artery (2) Afib Current visit: Yes Status: Acute Rate and rhythm stable. Continue eliquis and metoprolol. Qualifiers: Atrial fibrillation type: chronic Qualified Code(s): I48.2 - Chronic atrial fibrillation (3) Hyperlipemia Current visit: Yes Status: Acute Continue Lipitor. Qualifiers: Hyperlipidemia type: unspecified Qualified Code(s): E78.5 - Hyperlipidemia, unspecified (4) Hypothyroidism Current visit: Yes Status: Acute Continue levothyroxine. Qualifiers: Hypothyroidism type: unspecified Qualified Code(s): E03.9 - Hypothyroidism, unspecified (5) Hypokalemia and hypomagnasemia Current visit: Yes Status: Acute on lasix. k low will give one time dose oral k and then start daily lower supplementation and monitor. IV mag one gram, then start once day po will check urinalysis INTERVAL HISTORY Ms. French is a 77 year old female admitted 07/29 to rehab unit from [facility] s/p right CVA. She lives alone and fell at home, hit her head and wrist. 2 days later very confused and was found to have right sided CVA with left sided weakness and speech change. MRI showed acute right MCA infarct . She as hx of afib and was not not anticoagulation therapy. She had weakness and speech difficulty as well as swallow problems. She was started on puree diet with thin liquids. started on eliquis and lipitor. advanced to chopped [place] with hearing aides, upper and lower dentures and glasses. Lives at home alone, independant prior to admission. She has hx anxiety and hypothyroid and htn , and says her mood currently ok on medicine. BP stable HR stable denies vision changes She is a daily half pack smoker. agrees to use patch. advised to stop smoking. She was RE started on eliquis and doing well with it. She is on lasix her K has been low and has been replaced renal function good. will continue to monitor K She is eating better and doing well with walker in rehab. Her attention span has improved some but remains forgetful She plans to move in with her younger brother Iain - EXAM General appearance: Present: WF cooperative, A&O [place] pleasant, no acute distress Exam: mild mod expressive aphasia. - Head Head exam: Present: forehead and midface shows very faded bruises nontender - Eye Eye exam: : PERRL, conjuntiva pink, sclera anicteric Pupils: Present: PERRL - Neck Neck exam general surgery: Present: supple, trachea midline. Absent: lymphadenopathy - Respiratory Respiratory exam: Present: CTAB. Absent: accessory muscle use, rales, rhonchi, wheezes - Cardiovascular Cardiovascular exam: Present: irregular rhythm, +S1, +S2. Absent: diastolic murmur, gallop, rubs, systolic murmur - GI/Abdominal GI/Abdominal exam: Present: normal bowel sounds, soft, no peritoneal signs. Absent: distended, tenderness - Extremities Exam Extremities exam: Present: warm, radial pulses palpable and symmetrical. Absent: calf tenderness, cyanotic, pedal edema Additional comments: slight L weakness. strength 4/5 - Neurological Exam Neurological exam: Present: CN II-XII intact, oriented X3, no focal deficits. Absent: pronater drift, facial droop, speech deficit - Skin Skin exam: Present: dry, intact Additional comments: fading bruising around left eye Steri-Strips to left forehead intact no bleeding - Constitutional Vitals: Temp Pulse Resp BP Pulse Ox 97.7 F 130 16 114/72 95 08/13/18 07:59 08/13/18 07:59 08/13/18 07:59 08/13/18 07:59 08/13/18 07:59 General appearance: Present: cooperative, A&O X 3, pleasant, no acute distress, answers questions appropriately Internal Medicine: Result - Labs CBC & Chem 7: 08/08/18 06:15 08/08/18 06:15 - ABG Interpretation ABG results: PT/INR, D-dimer PT 14.6 Seconds (9.4-12.1) H 07/29/18 07:01 Consult Discharge Plan - Plan Referrals: Farrah Lieberman MD [Primary Care Provider] -
[2018-08-13] MEDS: Melatonin 3 MG TABLET PO PRN (20:41)
[2018-08-14] MEDS: Furosemide 20 MG TABLET PO SCH (09:24)
[2018-08-14] MEDS: Venlafaxine XR (24 HR) 75 MG CAP.ER.24H PO SCH (09:25)
[2018-08-14] MEDS: Multivit/Ca/Min/Fe/FA 1 TAB TABLET PO SCH (09:25)
[2018-08-14] MEDS: Apixaban 5 MG TABLET PO SCH ×2 (09:25→20:47)
[2018-08-14] MEDS: Diltiazem CD (24hr) 180 MG CAPSULE PO SCH (09:25)
[2018-08-14] MEDS: Nicotine 21 MG PATCH.TD24 TD SCH (09:26)
--- NOTE | 2018-08-14 13:18 | Internal Med Progress Note ---
Date of Encounter: 08/14/18 Time of Encounter: 01:40 - Subjective Interval history: Assessment and Plan (1) CVA (cerebral vascular accident) Current visit: Yes Status: Acute PT, OT, ST to eval and treat. had cva when off anticoagulant at home. No on anticoag. Will follow progress. was on pure diet with thin liquids. did advance to chop diet as tolerated. pt showing some difficulty with adl working with therapy attention span is short Continue to Assist with ADLs as necessary. Has l sided weakness. asphasic speech shows some improvement. Small soft fading bruising to mid face and forehead. No new neurological deficits at this time. Continue eliquis and Lipitor. . Qualifiers: CVA mechanism: embolism Precerebral and cerebral artery: middle cerebral artery Laterality of affected vessel: right Qualified Code(s): I63.411 - Cerebral infarction due to embolism of right middle cerebral artery (2) Afib Current visit: Yes Status: Acute Rate and rhythm stable. Continue eliquis and metoprolol. Qualifiers: Atrial fibrillation type: chronic Qualified Code(s): I48.2 - Chronic atrial fibrillation (3) Hyperlipemia Current visit: Yes Status: Acute Continue Lipitor. Qualifiers: Hyperlipidemia type: unspecified Qualified Code(s): E78.5 - Hyperlipidemia, unspecified (4) Hypothyroidism Current visit: Yes Status: Acute Continue levothyroxine. Qualifiers: Hypothyroidism type: unspecified Qualified Code(s): E03.9 - Hypothyroidism, unspecified (5) Hypokalemia and hypomagnasemia Current visit: Yes Status: Acute on lasix. k low will give one time dose oral k and then start daily lower supplementation and monitor. IV mag one gram, then start once day po will check urinalysis INTERVAL HISTORY Ms. French is a 77 year old female admitted 07/29 to rehab unit from [facility] s/p right CVA. She lives alone and fell at home, hit her head and wrist. 2 days later very confused and was found to have right sided CVA with left sided weakness and speech change. MRI showed acute right MCA infarct . She as hx of afib and was not not anticoagulation therapy. She had weakness and speech difficulty as well as swallow problems. She was started on puree diet with thin liquids. started on eliquis and lipitor. advanced to chopped MENOMINEE with hearing aides, upper and lower dentures and glasses. Lives at home alone, independant prior to admission. She has hx anxiety and hypothyroid and htn , and says her mood currently ok on medicine. BP stable HR stable denies vision changes She is a daily half pack smoker. agrees to use patch. advised to stop smoking. She was RE started on eliquis and doing well with it. She is on lasix her K has been low and has been replaced renal function good. will continue to monitor K She is eating better and doing well with walker in rehab. Her attention span has improved some but remains forgetful She plans to move in with her younger brother Iain - EXAM General appearance: Present: WF cooperative, A&O MENOMINEE pleasant, no acute distress Exam: mild mod expressive aphasia. - Head Head exam: Present: forehead and midface shows very faded bruises nontender - Eye Eye exam: : PERRL, conjuntiva pink, sclera anicteric Pupils: Present: PERRL - Neck Neck exam general surgery: Present: supple, trachea midline. Absent: lymphadenopathy - Respiratory Respiratory exam: Present: CTAB. Absent: accessory muscle use, rales, rhonchi, wheezes - Cardiovascular Cardiovascular exam: Present: irregular rhythm, +S1, +S2. Absent: diastolic murmur, gallop, rubs, systolic murmur - GI/Abdominal GI/Abdominal exam: Present: normal bowel sounds, soft, no peritoneal signs. Absent: distended, tenderness - Extremities Exam Extremities exam: Present: warm, radial pulses palpable and symmetrical. Absent: calf tenderness, cyanotic, pedal edema Additional comments: slight L weakness. strength 4/5 - Neurological Exam Neurological exam: Present: CN II-XII intact, oriented X3, no focal deficits. Absent: pronater drift, facial droop, speech deficit - Skin Skin exam: Present: dry, intact Additional comments: fading bruising around left eye Steri-Strips to left forehead intact no bleeding - Constitutional Vitals: Temp Pulse Resp BP Pulse Ox 97.4 F L 111 14 127/74 94 08/14/18 08:14 08/14/18 08:14 08/14/18 08:14 08/14/18 08:14 08/14/18 08:14 General appearance: Present: cooperative, A&O X 3, pleasant, no acute distress, answers questions appropriately Internal Medicine: Result - Labs CBC & Chem 7: 08/08/18 06:15 08/08/18 06:15 - ABG Interpretation ABG results: PT/INR, D-dimer PT 14.6 Seconds (9.4-12.1) H 07/29/18 07:01 Consult Discharge Plan - Plan Referrals: Farrah Lieberman MD [Primary Care Provider] -
[2018-08-14] MEDS: Melatonin 3 MG TABLET PO PRN (20:47)
[2018-08-15] MEDS: Venlafaxine XR (24 HR) 75 MG CAP.ER.24H PO SCH (07:51)
[2018-08-15] MEDS: Nicotine 21 MG PATCH.TD24 TD SCH (07:52)
[2018-08-15] MEDS: Furosemide 20 MG TABLET PO SCH (07:52)
[2018-08-15] MEDS: Diltiazem CD (24hr) 180 MG CAPSULE PO SCH (07:52)
[2018-08-15] MEDS: Apixaban 5 MG TABLET PO SCH ×2 (07:52→20:14)
[2018-08-15] MEDS: Multivit/Ca/Min/Fe/FA 1 TAB TABLET PO SCH (07:52)
--- NOTE | 2018-08-15 10:54 | Internal Med Progress Note ---
Date of Encounter: 08/15/18 Time of Encounter: 10:53 - Assessment and plan (1) CVA (cerebral vascular accident) Current Visit: Yes Status: Acute Assessment and plan: Continue PT and OT. Will follow progress. Ambulating hundred and 50 feet with standby assist. Does have expressive and receptive aphasia. Follows 2 steps simple commands. Qualifiers: CVA mechanism: embolism Precerebral and cerebral artery: middle cerebral artery Laterality of affected vessel: right Qualified Code(s): I63.411 - Cerebral infarction due to embolism of right middle cerebral artery (2) Afib Current Visit: Yes Status: Acute Assessment and plan: Rate and rhythm stable. Continue current medication. Qualifiers: Atrial fibrillation type: chronic Qualified Code(s): I48.2 - Chronic atrial fibrillation (3) Hyperlipemia Current Visit: Yes Status: Acute Assessment and plan: Continue statin Qualifiers: Hyperlipidemia type: unspecified Qualified Code(s): E78.5 - Hyperlipidemia, unspecified (4) Hypothyroidism Current Visit: Yes Status: Acute Assessment and plan: Continue levothyroxine. Qualifiers: Hypothyroidism type: unspecified Qualified Code(s): E03.9 - Hypothyroidism, unspecified - Time Spent With Patient less than 15 minutes - Subjective Interval history: Participating well with therapy. Ambulating in hallway with Walker was standby assist. participating in light meal prep with OT in kitchen. States bowels moved this am. Denies fever, chills, nausea or vomiting. Denies shortness of breath or chest pain. Plan is to discharge home with brother. Patient did have recent blood in stool and will follow up with Dr. Andre on . - Constitutional Vitals: Temp Pulse Resp BP Pulse Ox 97.7 F 95 20 144/79 93 08/15/18 07:19 08/15/18 07:19 08/15/18 07:19 08/15/18 07:19 08/15/18 07:19 General appearance: Present: cooperative, A&O X 3, pleasant, no acute distress, answers questions appropriately - Head Head exam: Present: atraumatic, normocephalic - Eye Eye exam: Present: PERRL, conjuntiva pink, sclera anicteric Pupils: Present: PERRL - Neck Neck exam general surgery: Present: supple, trachea midline. Absent: lymphadenopathy - Respiratory Respiratory exam: Present: CTAB. Absent: accessory muscle use, rales, rhonchi, wheezes - Cardiovascular Cardiovascular exam: Present: irregular rhythm, +S1, +S2. Absent: diastolic murmur, gallop, rubs, systolic murmur - GI/Abdominal GI/Abdominal exam: Present: normal bowel sounds, soft, no peritoneal signs. Absent: distended, tenderness - Extremities Exam Extremities exam: Present: warm, radial pulses palpable and symmetrical. Absent: calf tenderness, cyanotic, pedal edema - Neurological Exam Neurological exam: Present: CN II-XII intact, oriented X3, no focal deficits. Absent: pronater drift, facial droop, speech deficit - Skin Skin exam: Present: dry, intact Internal Medicine: Result - Labs CBC & Chem 7: 08/08/18 06:15 08/08/18 06:15 - ABG Interpretation ABG results: PT/INR, D-dimer PT 14.6 Seconds (9.4-12.1) H 07/29/18 07:01 Consult Discharge Plan - Plan Referrals: Farrah Lieberman MD [Primary Care Provider] -
[2018-08-15] MEDS: Melatonin 3 MG TABLET PO PRN (20:15)
[2018-08-16] MEDS: Diltiazem CD (24hr) 180 MG CAPSULE PO SCH (08:08)
[2018-08-16] MEDS: Nicotine 21 MG PATCH.TD24 TD SCH (08:08)
[2018-08-16] MEDS: Multivit/Ca/Min/Fe/FA 1 TAB TABLET PO SCH (08:08)
[2018-08-16] MEDS: Venlafaxine XR (24 HR) 75 MG CAP.ER.24H PO SCH (08:08)
[2018-08-16] MEDS: Furosemide 20 MG TABLET PO SCH (08:09)
[2018-08-16] MEDS: Apixaban 5 MG TABLET PO SCH ×2 (08:09→20:39)
--- NOTE | 2018-08-16 09:33 | Internal Med Progress Note ---
Date of Encounter: 08/16/18 Time of Encounter: 09:32 - Assessment and plan (1) CVA (cerebral vascular accident) Current Visit: Yes Status: Acute Assessment and plan: Continue PT and OT. Will follow progress. Ambulating hundred and 50 feet with standby assist. Does have expressive and receptive aphasia. Follows 2 steps simple commands. Qualifiers: CVA mechanism: embolism Precerebral and cerebral artery: middle cerebral artery Laterality of affected vessel: right Qualified Code(s): I63.411 - Cerebral infarction due to embolism of right middle cerebral artery (2) Afib Current Visit: Yes Status: Acute Assessment and plan: Rate and rhythm stable. Continue current medication. Qualifiers: Atrial fibrillation type: chronic Qualified Code(s): I48.2 - Chronic atrial fibrillation (3) Hyperlipemia Current Visit: Yes Status: Acute Assessment and plan: Continue statin Qualifiers: Hyperlipidemia type: unspecified Qualified Code(s): E78.5 - Hyperlipidemia, unspecified (4) Hypothyroidism Current Visit: Yes Status: Acute Assessment and plan: Continue levothyroxine. Qualifiers: Hypothyroidism type: unspecified Qualified Code(s): E03.9 - Hypothyroidism, unspecified - Time Spent With Patient less than 15 minutes - Subjective Interval history: Participating well with therapy. Ambulating in hallway with Walker was standby assist. states she slept well. Denies fever, chills, nausea or vomiting. Denies shortness of breath or chest pain. Plan is to discharge home with brother on 08/18. - Constitutional Vitals: Temp Pulse Resp BP Pulse Ox 97.5 F L 74 16 154/77 95 08/16/18 07:21 08/16/18 07:21 08/16/18 07:21 08/16/18 07:21 08/16/18 07:21 General appearance: Present: cooperative, A&O X 3, pleasant, no acute distress, answers questions appropriately - Head Head exam: Present: atraumatic, normocephalic - Eye Eye exam: Present: PERRL, conjuntiva pink, sclera anicteric Pupils: Present: PERRL - Neck Neck exam general surgery: Present: supple, trachea midline. Absent: lymphadenopathy - Respiratory Respiratory exam: Present: CTAB. Absent: accessory muscle use, rales, rhonchi, wheezes - Cardiovascular Cardiovascular exam: Present: irregular rhythm, +S1, +S2. Absent: diastolic murmur, gallop, rubs, systolic murmur - GI/Abdominal GI/Abdominal exam: Present: normal bowel sounds, soft, no peritoneal signs. Absent: distended, tenderness - Extremities Exam Extremities exam: Present: warm, radial pulses palpable and symmetrical. Absent: calf tenderness, cyanotic, pedal edema - Neurological Exam Neurological exam: Present: CN II-XII intact, oriented X3, no focal deficits. Absent: pronater drift, facial droop, speech deficit - Skin Skin exam: Present: dry, intact Internal Medicine: Result - Labs CBC & Chem 7: 08/08/18 06:15 08/08/18 06:15 - ABG Interpretation ABG results: PT/INR, D-dimer PT 14.6 Seconds (9.4-12.1) H 07/29/18 07:01 Consult Discharge Plan - Plan Referrals: Farrah Lieberman MD [Primary Care Provider] -
[2018-08-16 10:16] LABS: Basophils % 0.4 %; Eosinophils # 0.1 K/mcL (0.0-0.6); Hematocrit 33.5 % (35.3-44.9); Hemoglobin 10.3 g/dL (11.5-15.4); Immature Granulocytes % 0.6 % (0-4); Lymphocytes % 10.2 %; Mean Corpuscular HGB Conc 30.7 g/dL (31.6-35.5); Mean Corpuscular Hemoglobin 25.6 pg (28.0-33.3); Mean Corpuscular Volume 83.3 fL (83.0-100.0); Mean Platelet Volume 9.6 fL (9.4-12.4); Monocytes # 0.8 K/mcL (0.0-1.3); Monocytes % 8.1 %; Platelet Count 452 K/mcL (140-400); Red Blood Count 4.02 M/mcL (3.82-4.97); Red Cell Distribution Width 15.9 % (11.5-14.5); Segmented Neutrophils % 79.7 %
[2018-08-16 10:43] LABS: Alanine Aminotransferase 31 Units/L (7-52); Albumin 3.3 g/dL (3.5-5.7); Albumin/Globulin Ratio 1.2 (1.1-2.2); Alkaline Phosphatase 169 Units/L (34-104); Aspartate Amino Transferase 36 Units/L (13-39); BUN/Creatinine Ratio 22 (6-26); Bilirubin,Total 0.5 mg/dL (0.3-1.0); Blood Urea Nitrogen 19 mg/dL (8-23); Calcium 9.1 mg/dL (8.6-10.3); Carbon Dioxide 29 mEq/L (23-29); Chloride 103 mEq/L (98-107); Globulin 2.8 g/dL (2.4-3.5); Glucose 183 mg/dL (70-105); Osmolality,Calculated 293 (280-300); Potassium 5.2 mEq/L (3.5-5.1); Sodium 138 mEq/L (136-145); Total Protein 6.1 g/dL (6.4-8.9); eGFR For Non-African Americans > 60 (> 60)
[2018-08-16] MEDS: Melatonin 3 MG TABLET PO PRN (20:39)
[2018-08-17] MEDS: Multivit/Ca/Min/Fe/FA 1 TAB TABLET PO SCH (08:03)
[2018-08-17] MEDS: Venlafaxine XR (24 HR) 75 MG CAP.ER.24H PO SCH (08:03)
[2018-08-17] MEDS: Furosemide 20 MG TABLET PO SCH (08:03)
[2018-08-17] MEDS: Apixaban 5 MG TABLET PO SCH ×2 (08:03→20:33)
[2018-08-17] MEDS: Diltiazem CD (24hr) 180 MG CAPSULE PO SCH (08:03)
[2018-08-17] MEDS: Nicotine 21 MG PATCH.TD24 TD SCH (08:04)
--- NOTE | 2018-08-17 14:15 | Internal Med Progress Note ---
Date of Encounter: 08/17/18 Time of Encounter: 14:14 - Assessment and plan (1) CVA (cerebral vascular accident) Current Visit: Yes Status: Acute Assessment and plan: Continue PT and OT. Will follow progress. Ambulating hundred and 50 feet with standby assist. Does have expressive and receptive aphasia. Follows 2 steps simple commands. Qualifiers: CVA mechanism: embolism Precerebral and cerebral artery: middle cerebral artery Laterality of affected vessel: right Qualified Code(s): I63.411 - Cerebral infarction due to embolism of right middle cerebral artery (2) Afib Current Visit: Yes Status: Acute Assessment and plan: Rate and rhythm stable. Continue current medication. Qualifiers: Atrial fibrillation type: chronic Qualified Code(s): I48.2 - Chronic atrial fibrillation (3) Hyperlipemia Current Visit: Yes Status: Acute Assessment and plan: Continue statin Qualifiers: Hyperlipidemia type: unspecified Qualified Code(s): E78.5 - Hyperlipidemia, unspecified (4) Hypothyroidism Current Visit: Yes Status: Acute Assessment and plan: Continue levothyroxine. Qualifiers: Hypothyroidism type: unspecified Qualified Code(s): E03.9 - Hypothyroidism, unspecified - Time Spent With Patient less than 15 minutes - Subjective Interval history: Participating well with therapy. independant on unit. states she slept well. Denies fever, chills, nausea or vomiting. Denies shortness of breath or chest pain. Plan is to discharge home with brother on 08/18. denies concerns at this time. - Constitutional Vitals: Temp Pulse Resp BP Pulse Ox 97.5 F L 100 15 117/68 94 08/17/18 07:20 08/17/18 07:20 08/17/18 07:20 08/17/18 07:20 08/17/18 07:20 General appearance: Present: cooperative, A&O X 3, pleasant, no acute distress, answers questions appropriately - Head Head exam: Present: atraumatic, normocephalic - Eye Eye exam: Present: PERRL, conjuntiva pink, sclera anicteric Pupils: Present: PERRL - Neck Neck exam general surgery: Present: supple, trachea midline. Absent: lymphadenopathy - Respiratory Respiratory exam: Present: CTAB. Absent: accessory muscle use, rales, rhonchi, wheezes - Cardiovascular Cardiovascular exam: Present: irregular rhythm, +S1, +S2. Absent: diastolic murmur, gallop, rubs, systolic murmur - GI/Abdominal GI/Abdominal exam: Present: normal bowel sounds, soft, no peritoneal signs. Absent: distended, tenderness - Extremities Exam Extremities exam: Present: warm, radial pulses palpable and symmetrical. Absent: calf tenderness, cyanotic, pedal edema - Neurological Exam Neurological exam: Present: CN II-XII intact, oriented X3, no focal deficits. Absent: pronater drift, facial droop, speech deficit - Skin Skin exam: Present: dry, intact Internal Medicine: Result - Labs CBC & Chem 7: 08/16/18 09:50 08/16/18 09:50 - ABG Interpretation ABG results: PT/INR, D-dimer PT 14.6 Seconds (9.4-12.1) H 07/29/18 07:01 Consult Discharge Plan - Plan Referrals: Farrah Lieberman MD [Primary Care Provider] -
[2018-08-17] MEDS: Melatonin 3 MG TABLET PO PRN (20:34)
[2018-08-18] MEDS: Venlafaxine XR (24 HR) 75 MG CAP.ER.24H PO SCH (07:48)
[2018-08-18] MEDS: Apixaban 5 MG TABLET PO SCH (07:48)
[2018-08-18] MEDS: Nicotine 21 MG PATCH.TD24 TD SCH (07:48)
[2018-08-18] MEDS: Multivit/Ca/Min/Fe/FA 1 TAB TABLET PO SCH (07:48)
[2018-08-18] MEDS: Diltiazem CD (24hr) 180 MG CAPSULE PO SCH (07:48)
[2018-08-18] MEDS: Furosemide 20 MG TABLET PO SCH (07:48)
--- NOTE | 2018-08-18 09:18 | Discharge Summary ---
Date of Encounter: 08/18/18 Time of Encounter: 09:14 - Discharge Diagnosis (1) CVA (cerebral vascular accident) Priority: Primary Status: Acute Comments: Patient had slight left hemiparesis during arrival to facility and progressed well with physical therapy. Patient's muscle strength shows very slight deficit and actually shows 5/5 muscle strength on exam. Patient continues to have some difficulty following complex directions and does have some more research during complex questioning. Patient will continue with her physical therapy to outpatient services. She is continue follow-up with PCP and her neurologist. Qualifiers: CVA mechanism: embolism Precerebral and cerebral artery: middle cerebral artery Laterality of affected vessel: right Qualified Code(s): I63.411 - Cerebral infarction due to embolism of right middle cerebral artery (2) HTN (hypertension) Priority: Secondary Status: Acute Comments: Vital signs remained stable during her stay at this facility. Patient is to continue with home medications and follow-up with PCP for further management Qualifiers: Hypertension type: essential hypertension Qualified Code(s): I10 - Essential (primary) hypertension (3) Afib Priority: Secondary Status: Acute Comments: No acute issues during stay of facility. Patient's heart rate remained controlled less than 100. We will continue with home medications and follow-up with PCP Qualifiers: Atrial fibrillation type: chronic Qualified Code(s): I48.2 - Chronic atrial fibrillation Hospital course: Ms. French is a 77 year old female, who was admitted to rehab unit from [facility] s/p right CVA with slight left hemiparesis. went to ED at [facility] ED after having a fall that resulted in wrist pain. She has hx of afib and was not not anticoagulation therapy. MRI showed acute right MCA infarct . Patient had an uneventful recovery at [facility] was transferred to this facility for further rehabilitation due to generalized weakness. Lives at home alone, independent prior to admission and drive. During her stay at this facility patient progressed well with physical therapy and gradually regain most of her strength to her left extremities, to the point where she is 5/5 all muscle strength. Patient continues to have some difficulty with complex sentences which includes word searching. Also continues to have some difficulty with complex directions. Patient is to continue with physical therapy through outpatient therapy. Patient is continue with her follow-up with her neurologist and PCP. Patient will be given a prescription for Elavil with which she was started on after her ischemic stroke. Discharge discussed with: patient, family Time spent discussing smoking cessation with patient: 3 to 10 minutes - Time Spent with Patient Total time spent providing and/or coordinating discharge services: Time spent: Less than 30 minutes - Discharge Medications Prescriptions: No Action Venlafaxine HCl [Venlafaxine HCl ER] 75 mg PO DAILY Lovastatin [Altoprev] 40 mg PO HS Levothyroxine [Synthroid] 75 mcg PO 0630 Furosemide [Lasix] 20 mg PO DAILY Diltiazem HCl [Diltiazem 24Hr Cd] 180 mg PO DAILY Cilostazol 50 mg PO BID Home Medications: Cilostazol 50 mg PO BID 07/28/18 [History] Diltiazem HCl [Diltiazem 24Hr Cd] 180 mg PO DAILY 07/28/18 [History] Furosemide [Lasix] 20 mg PO DAILY 07/28/18 [History] Levothyroxine [Synthroid] 75 mcg PO 0630 07/28/18 [History] Lovastatin [Altoprev] 40 mg PO HS 07/28/18 [History] Venlafaxine HCl [Venlafaxine HCl ER] 75 mg PO DAILY 07/28/18 [History] Allergies/Adverse Reactions: Allergy/AdvReac Type Severity Reaction Status Date / Time No Known Allergies Allergy Verified 07/28/18 16:08 Date of admission: 07/28/18 15:47 Primary care physician: Anmol Salguero Consults: 07/28/18 16:14 Consult to Occupational Therapy [CONS] Routine Comment: Evaluate, develop and implement POC Reason for Consult: s/p cva Does patient have active BEDREST order?: No Is patient medically & hemodynamically stable?: Yes Patient assessed for mobility or mobilized this visit?: No Consult to Physical Medicine/Rehab [CONS] Routine Reason for Consult: s/p cva Call Completed: Yes Consult to Physical Therapy [CONS] Routine Comment: Evaluate, develop and implement POC Reason for Consult: s/p cva Does patient have active BEDREST order?: No Is patient medically & hemodynamically stable?: Yes Patient assessed for mobility or mobilized this visit?: No Consult to Recreational Therapy [CONS] Routine Comment: Evaluate, develop and implement POC Consult to Sensor Technician [CONS] Routine Reason for SW Consult: d/c planning s/p cva Consult to Speech Therapy [CONS] Routine Comment: Evaluate, develop and implement POC Reason for Consult: s/p cva. aphagia Call Completed: Yes 08/01/18 14:18 Consult to Psychology [CONS] Routine Consulting Provider: Yissel Sinha Reason for Consult: Possible depression; adjustment disorder Call Completed: No Discharging clinician: Enrique Saravia - Constitutional Vitals: Temp Pulse Resp BP Pulse Ox 98.4 F 110 16 137/69 93 08/17/18 19:13 08/17/18 19:13 08/17/18 19:13 08/17/18 19:13 08/17/18 19:13 General appearance: Present: cooperative, A&O X 3, pleasant, no acute distress, answers questions appropriately - Head Head exam: Present: atraumatic, normocephalic - Eye Eye exam: Present: PERRL, conjuntiva pink, sclera anicteric Pupils: Present: PERRL - Neck Neck exam general surgery: Present: supple, trachea midline. Absent: lymphadenopathy - Respiratory Respiratory exam: Present: decreased breath sounds, CTAB. Absent: accessory muscle use, rales, rhonchi, wheezes - Cardiovascular Cardiovascular exam: Present: RRR, +S1, +S2. Absent: diastolic murmur, gallop, rubs, systolic murmur - GI/Abdominal GI/Abdominal exam: Present: normal bowel sounds, soft, no peritoneal signs. Absent: distended, tenderness - Extremities Exam Extremities exam: Present: warm, radial pulses palpable and symmetrical. Absent: calf tenderness, cyanotic, pedal edema - Neurological Exam Neurological exam: Present: CN II-XII intact, oriented X3, no focal deficits. Absent: pronater drift, facial droop, speech deficit - Skin Skin exam: Present: dry, intact - Patient Status Disposition: Home, Self-Care Condition: Good Functional capacity at discharge: uses cane/walker Overall status at discharge: patient is progressing back to baseline - Discharge Instructions Follow Up With: Fararh Lieberman MD [Primary Care Provider] - - Diet and Activity Activity: ambulate only with your walker, as per physical therapy Diet: low fat, low cholesterol, low salt diet
[2018-08-18 09:51] VITALS: BP 136/72
== END 2018-08-18 11:30 | disposition home or self-care (01) | DRG 57 ==
LOC: INPGRE 15:47